=== PATIENT | female | born 1990 | race Caucasian/White ===

== ENCOUNTER 2022-11-12 16:22 | Outpatient (OUT) | payer OTHER, SELFPAY ==
[2022-11-12 16:51] LABS: Basophils Absolute Auto 0.1 10^3/uL (0.0-0.1); Eosinophils Absolute Auto 0.4 10^3/uL (0.0-0.7); Eosinophils Percent Auto 6.8 % (0.9-7.0); Hematocrit 36.1 % (36.0-48.0); Hemoglobin 12.4 g/dL (12.0-16.0); Immature Granulocytes Abs Auto 0.01 10^3/uL (0.00-0.03); Immature Granulocytes Pct Auto 0.2 % (0.0-0.5); Lymphocytes Absolute Auto 2.4 10^3/uL (1.2-3.8); Lymphocytes Percent Auto 39.6 % (20.5-60.0); Mean Corpuscular HGB Conc 34.3 g/dL (29.9-35.2); Mean Platelet Volume 8.1 fL (9.5-13.5); Monocytes Absolute Auto 0.4 10^3/uL (0.3-0.8); Neutrophils Absolute Auto 2.8 10^3/uL (1.4-6.5); Neutrophils Percent Auto 46.4 % (43.0-75.0); Platelet Count 315 10^3/uL (150-450); Red Blood Count 3.88 10^6/uL (4.20-5.40); Red Cell Distribution Width 11.8 % (11.0-15.0)
[2022-11-12 17:23] LABS: Estimated Average Glucose 97 mg/dL
[2022-11-12 17:27] LABS: Alanine Aminotransferase 17 U/L (14-59); Albumin Level 4.1 g/dL (3.4-5.0); Alkaline Phosphatase 109 U/L (46-116); Anion Gap 10.5; Aspartate Amino Transferase 16 U/L (15-37); BUN Creatinine Ratio 17.9; Bilirubin Direct 0.1 mg/dL (0.0-0.2); Bilirubin Total 0.3 mg/dL (0.2-1.0); Calcium 9.6 mg/dL (8.5-10.1); Carbon Dioxide 30.4 mmol/L (21.0-32.0); Chloride 100 mmol/L (98-107); Chol HDL Ratio 2.3; Cholesterol 185 mg/dL (<=200); Estimated GFR (African America >60 (>=60); Estimated GFR (Non-African Ame >60 (>=60); Free T3 2.92 pg/mL (2.18-3.98); Glucose 92 mg/dL (74-106); HDL Cholesterol 79 mg/dL (40-60); Magnesium 2.1 mg/dL (1.8-2.4); Potassium 3.9 mmol/L (3.5-5.1); Sodium 137 mmol/L (136-145); Thyroid Stimulating Hormone 1.291 uIU/mL (0.358-3.740); Total Protein 8.1 g/dL (6.4-8.2); Triglycerides 81 mg/dL (<=150); VLDL CHOLESTEROL 16.2 mg/dL
[2022-11-12 17:38] LABS: Percent Iron Saturation 24.5 %
[2022-11-12 18:16] LABS: Free T4 1.04 ng/dL (0.76-1.46)
== END 2022-11-12 16:23 | disposition home or self-care (01) ==
PROVIDERS: PCP Family Medicine; Visit Provider Family Medicine
DX: Z00.00 Encounter for general adult medical examination without abnormal findings (principal)
CPT/HCPCS: 36415; 80048; 80061; 80076; 82607; 83036; 83540; 83550; 83735; 84439; 84443; 84481; 85025

== ENCOUNTER 2023-09-29 14:27 | Emergency (ER) | payer OTHER, SELFPAY ==
[2023-09-29 14:36] VITALS: BP 120/85; PULSE 121; TEMP 36.6; O2SAT 98; BMI 27.4
--- NOTE | 2023-09-29 14:50 | ED.BACK1 ---
HPI HPI - Back Pain/Injury General Chief Complaint: Back Pain/Injury Stated Complaint: BACK AND LEG PAIN Time Seen by Provider: 09/29/23 14:28 History of Present Illness HPI Narrative: 32 year old female presents to the ED for lower back pain that radiates down the right leg. Onset was 09/25/23. Denies fever, chills, injury, urinary sx. Denies saddle anesthesia. Denies change in bowel and/or bladder control. She is having difficulty raising her right leg due to the pain. She called her pcp yesterday who prescribed prednisone and tramadol. She took 50 mg prednisone, 400 mg Ibuprofen, and tramadol at 1100 today. Denies chance of . She is driving today. Rates her pain 01/05. Reports this has been a recurrent issue. She has been in physical therapy and pain management in the past for similar sx. Reports hx DDD. Related Data Previous Rx's ?Medication ?Instructions ?Recorded hydrocodone 5 mg-acetaminophen 325 1 tab PO Q8H PRN pain 4 days #12 09/29/23 mg tablet tabs lidocaine 5 % topical patch 1 patch topical DAILY #15 ea 09/29/23 (Lidoderm) tizanidine 2 mg capsule (Zanaflex) 2 mg PO Q8H PRN muscle spasticity 09/29/23 #15 caps Allergies Allergy/AdvReac Type Severity Reaction Status Date / Time Penicillins Allergy Severe Unknown Verified 09/29/23 14:41 Opioid HPI Opioid Management Most Recent Opioid Data: Last Pain Scale 10 09/29/23 16:28 Last MAR Pain Assessment 09/29/23 16:28 Review of Systems ROS Constitutional Denies: fever or chills Cardiovascular Denies: chest pain Respiratory Denies: shortness of breath Gastrointestinal Denies: abdominal pain, nausea, vomiting or diarrhea Genitourinary Denies: painful urination, urinary frequency, urinary urgency, urinary incontinence or blood in urine Musculoskeletal Reports: back pain and extremity pain; Denies: neck pain Integumentary/Breast Denies: rash Neurological Denies: numbness in extremities or weakness in extremities [facility] Medical History (Updated 09/29/23 @ 17:22 by Edenilson Ron) Sciatic nerve pain ?M54.30 - Sciatica, unspecified side (ICD-10) Scoliosis ?M41.9 - Scoliosis, unspecified (ICD-10) Exam Constitutional Vital Signs, click to edit/add: Last Vital Signs Temp 97.9 F 09/29/23 14:36 Pulse 96 H 09/29/23 16:34 Resp 20 09/29/23 16:34 BP 131/74 09/29/23 16:34 Pulse Ox 98 09/29/23 16:34 O2 Del Method Room Air 09/29/23 14:36 Common normals: no apparent distress and oriented x3 General appearance: cooperative Eye Common normals: conjunctivae normal Neck & C-Spine Common normals: supple Chest Chest: symmetrical chest wall rise Respiratory Common normals: normal respiratory effort Effort & inspection: able to speak in complete sentences Cardio Common normals: regular rate Peripheral pulses: posterior tibial pulses present and dorsalis pedis pulses present Back & Pelvis Lumbar spine/lower back: normal to inspection, paraspinal muscle tenderness Lumbar paraspinal muscle tenderness: right and paraspinal muscle spasm Lumbar paraspinal muscle spasm: right Sacrum: tenderness; no ecchymosis, no erythema and no swelling Coccyx: tenderness Neuro Common normals: oriented x3 Sensorium/orientation: awake and alert Psych Mood and affect: tearful Course Vital Signs Vital signs: Vital Signs Temperature 97.9 F 09/29/23 14:36 Pulse Rate 121 H 09/29/23 14:36 Respiratory Rate 18 09/29/23 14:36 Blood Pressure 120/85 09/29/23 14:36 Pulse Oximetry 98 09/29/23 14:36 Oxygen Delivery Method Room Air 09/29/23 14:36 Temperature 97.9 F 09/29/23 14:36 Pulse Rate 96 H 09/29/23 16:34 Respiratory Rate 20 09/29/23 16:34 Blood Pressure 131/74 09/29/23 16:34 Pulse Oximetry 98 09/29/23 16:34 Oxygen Delivery Method Room Air 09/29/23 14:36 MDM - Back Pain/Injury MDM Narrative Medical decision making narrative: The patient was medicated for her discomfort here with improvement. X-ray showed mild degenerative disc disease L4-S1; on the prior CT abdomen pelvis from 02/23/2021 there is a central disc protrusion which mildly-moderately narrows the spinal canal and slightly narrows the lateral recess at this level. Findings were discussed. She was given a copy of her x-ray report. OARRS was reviewed. Prescriptions were provided for Lidoderm patches, Zanaflex, and norco. She was advised to not take the tramadol if she is taking the norco. Continue the prednisone as directed. Follow up with pcp for a recheck, further evaluation and treatment. Differential Diagnosis Differential diagnosis: Likely lumbar radiculopathy, sciatica, strain of lumbar region and thoracic back pain Medical Records Attestation: I reviewed the patient's medical records. Imaging Data XR lumbar spine: Attestation: I have reviewed the pertinent imaging results. Radiologist's impression: MRN: [facility]:[id number] date: 1990 Sex: F Assigned Patient Location: ER Current Patient Location: ER Accession/Order Number: [id number] Exam Date: 09/29/2023 15:41 Report Date: 09/29/2023 16:24 At the request of: EDENILSON RON Procedure: XR lumbar spine 2-3V IMAGES REVIEWED: XR lumbar spine 2-3V COMPARISON: 02/23/2021. CLINICAL INDICATION: Pain FINDINGS/IMPRESSION: 1. No radiographic evidence of acute osseous abnormality of the lumbar spine. 2. Mild dextrocurvature of the lower lumbar spine. 3. Question L5 pars defect. No significant spondylolisthesis seen on these x-rays, trace anterolisthesis L5-S1 seen on prior CT. 4. Mild degenerative disc disease L4-S1. On the prior CT abdomen pelvis from 02/23/2021 there is a central disc protrusion which mildly-moderately narrows the spinal canal and slightly narrows the lateral recess at this level. Electronically authenticated by: NUPUR CARO Date: 09/29/2023 16:24 Dictated By: Nupur Caro M.D. Signed By: 09/29/23 DD/ 1624 TD/TT: Manager Business Management: Discharge Plan Discharge Stand Alone Forms: Portal Instructions Chief Complaint: Back Pain/Injury Clinical Impression: Acute low back pain with sciatica Patient Disposition: Home, Self-Care Time of Disposition Decision: 17:22 Condition: Good Mode of Transportation: Private Vehicle Prescriptions / Home Meds: New tizanidine [Zanaflex] 2 mg capsule 2 mg PO Q8H PRN (Reason: muscle spasticity) Qty: 15 0RF lidocaine [Lidoderm] 5 % adhesive patch,medicated 1 patch topical DAILY Qty: 15 0RF Rx Instructions: leave on most painful area for up to 12 hrs hydrocodone-acetaminophen 5-325 mg tablet 1 tab PO Q8H PRN (Reason: pain) 4 Days Qty: 12 0RF Print Language: Gabonese Instructions: Sciatica (ED), Back Pain (ED) Additional Instructions: Return to the ER for new or worsening symptoms. Referrals: Neil Upton MD [Primary Care Provider] - 1 week Discharge Date/Time: 09/29/23 17:34
[2023-09-29] MEDS: LIDOCAINE 5% PATCH 1 PATCH TOPICAL (15:00)
[2023-09-29] MEDS: KETOROLAC TROMETHAMINE 30 MG/ML VIAL IM (15:00)
--- NOTE | 2023-09-29 15:51 | XR_ITS ---
The [address] [address] Patient Name: ELDA SAMPSON MRN: [id number] date: 1990 Sex: F Assigned Patient Location: ER Current Patient Location: ER Accession/Order Number: [id number] Exam Date: 09/29/2023 15:41 Report Date: 09/29/2023 16:24 At the request of: EDENILSON RON Procedure: XR lumbar spine 2-3V IMAGES REVIEWED: XR lumbar spine 2-3V COMPARISON: 02/23/2021. CLINICAL INDICATION: Pain FINDINGS/IMPRESSION: 1. No radiographic evidence of acute osseous abnormality of the lumbar spine. 2. Mild dextrocurvature of the lower lumbar spine. 3. Question L5 pars defect. No significant spondylolisthesis seen on these x-rays, trace anterolisthesis L5-S1 seen on prior CT. 4. Mild degenerative disc disease L4-S1. On the prior CT abdomen pelvis from 02/23/2021 there is a central disc protrusion which mildly-moderately narrows the spinal canal and slightly narrows the lateral recess at this level. Electronically authenticated by: NUPUR MENARD Date: 09/29/2023 16:24
[2023-09-29] MEDS: ORPHENADRINE 60 MG/ 2 ML VIAL IM (16:28)
[2023-09-29] MEDS: MORPHINE SULFATE 4 MG/ML VIAL IM (16:28)
[2023-09-29 16:34] VITALS: BP 131/74; PULSE 96; O2SAT 98
== END 2023-09-29 17:34 | disposition home or self-care (01) ==
PROVIDERS: Emergency Provider Emergency Medicine; PCP Family Medicine
DX: M54.41 Lumbago with sciatica, right side (principal)
CPT/HCPCS: 72100; 96372; 99284; J1885; J2270; J2360

== ENCOUNTER 2023-10-08 15:55 | Emergency (ER) | payer OTHER, SELFPAY ==
[2023-10-08] VITALS (17 sets, daily range): BP systolic 118; BP diastolic 85; PULSE 74–87; TEMP 36.8; O2SAT 95; BMI 29.3
--- NOTE | 2023-10-08 16:17 | ECG_ITS ---
[facility] Test Date: 2023-10-08 Pat Name: ELDA SAMPSON Department: Room: - Gender: Female Bed Teacher: : 1990 Requested By: EFREN RIOS Order Number: [id number] Reading MD: RUPAL CERVANTES Measurements Intervals [place] Rate: 78 P: 70 WA: 122 QRS: 83 QRSD: 104 T: 61 QT: 372 QTc: 405 Interpretive Statements 1100 Sinus rhythm 2440 Incomplete right bundle branch block 9130 borderline ECG No previous ECG available for comparison Electronically Signed On 10-09-2023 13:19:42 EDT by RUPAL CERVANTES
--- NOTE | 2023-10-08 16:17 | XR_ITS ---
[address] [address] Patient Name: ELDA SAMPSON MRN: [id number] date: 1990 Sex: F Assigned Patient Location: ER Current Patient Location: ER Accession/Order Number: [id number] Exam Date: 10/08/2023 16:25 Report Date: 10/08/2023 17:19 At the request of: CHACORTA LEE Procedure: XR chest 1V ONE-VIEW CHEST RADIOGRAPH, 10/08/2023 4:25 PM EDT COMPARISON: Chest, 10/27/2017 CLINICAL HISTORY: cp FINDINGS: No acute cardiopulmonary disease. No pulmonary edema, pneumothorax, or pleural effusion. Normal heart size. No acute osseous abnormality. XR/XR chest 1V IMPRESSION: No acute abnormality identified. Electronically authenticated by: Ginny TAVAREZ Date: 10/08/2023 17:19
--- NOTE | 2023-10-08 16:58 | ED_ITS ---
HPI - Chest Pain General Chief Complaint: Chest Pain Stated Complaint: chest pain, back pain, arm pain Time Seen by Provider: 10/08/23 16:16 Source: patient Mode of arrival: walk-in Limitations: no limitations History of Present Illness HPI narrative: The patient presented to us with a left-sided back and shoulder pain as well as chest pain that been going on at least for a week, she mentioned that she have a family history of coronary artery disease in her mother and she is concerned about her chest pain, she give this pain 7 out of 10, there was no nausea no vomiting no cough no difficulty breathing and the pain comes when taking a deep breath, also the pain comes whenever she is laying on the left side. no nausea no vomiting but the patient mentioned that she is feeling generally sick The patient also mentioned that she had bilateral ankle swelling over the last few days that resolved by itself Related Data Previous Rx's ?Medication ?Instructions ?Recorded hydrocodone 5 mg-acetaminophen 325 1 tab PO Q8H PRN pain 4 days #12 09/29/23 mg tablet tabs lidocaine 5 % topical patch 1 patch topical DAILY #15 ea 09/29/23 (Lidoderm) tizanidine 2 mg capsule (Zanaflex) 2 mg PO Q8H PRN muscle spasticity 09/29/23 #15 caps diclofenac sodium 75 mg 75 mg PO Q12H PRN pain #14 tabs 10/08/23 tablet,delayed release Allergies Allergy/AdvReac Type Severity Reaction Status Date / Time Penicillins Allergy Severe Unknown Verified 10/08/23 16:06 Review of Systems ROS Status of ROS 10 or more systems reviewed and unremark able except as noted in history and below [facility] Medical History (Updated 10/08/23 @ 18:19 by Kristie Arrington MD) Sciatic nerve pain ?M54.30 - Sciatica, unspecified side (ICD-10) Scoliosis ?M41.9 - Scoliosis, unspecified (ICD-10) Exam Narrative Exam Narrative: Nurses notes and vital signs reviewed and patient is not hypoxic. General: Well-appearing and in no apparent distress. Skin: Warm, dry, no pallor noted. No rash. Head: Normocephalic, atraumatic. Neck: Supple, non-tender. Eye: Pupils are equal, round and EOMI. No scleral icterus. Ears, Nose, Mouth, and Throat: TM are clear, no nasal mucosal hypertrophy. Oral mucosa is moist, no posterior oropharynx erythema, uvula is mid-line Cardiovascular: Regular Rate and Rhythm without murmur, gallop or rub. Respiratory: No accessory muscle use or respiratory distress. Lungs are clear to auscultation, no wheezing, rales or rhonchi Chest Wall: no tenderness Back: No midline thoracic or lumbar vertebral tenderness. No CVA tenderness Musculoskeletal: normal ROM, no calf or popliteal tenderness, no lower extremity edema/swelling GI: Abdomen is soft, non-distended. Normal bowel sounds. No masses appreciated. No tenderness to palpation. No rebound, guarding, or rigidity noted. Neurological: A&O x4. No cranial nerve dysfunction observed. No truncal ataxia. Moves all extremities. Sensation intact. Psychiatric: Cooperative and interactive. Normal mood and affect. Constitutional Vital Signs, click to edit/add: Last Vital Signs Temp 98.2 F 10/08/23 16:06 Pulse 82 10/08/23 16:06 Resp 18 10/08/23 16:06 BP 118/85 10/08/23 16:06 Pulse Ox 95 10/08/23 16:06 O2 Del Method Room Air 10/08/23 16:06 Course Vital Signs Vital signs: Vital Signs Temperature 98.2 F 10/08/23 16:06 Pulse Rate 82 10/08/23 16:06 Respiratory Rate 18 10/08/23 16:06 Blood Pressure 118/85 10/08/23 16:06 Pulse Oximetry 95 10/08/23 16:06 Oxygen Delivery Method Room Air 10/08/23 16:06 Temperature 98.2 F 10/08/23 16:06 Pulse Rate 82 10/08/23 16:06 Respiratory Rate 18 10/08/23 16:06 Blood Pressure 118/85 10/08/23 16:06 Pulse Oximetry 95 10/08/23 16:06 Oxygen Delivery Method Room Air 10/08/23 16:06 MDM - Chest Pain MDM Narrative Medical decision making narrative: The patient EKG in the ER showing sinus rhythm with a heart rate of [address] elevation or depression D-dimer CBC and as well as chemistry showed no acute pathology Chest x-ray showed no acute pathology as well The patient have a positive test but she have history of hysterectomy and she mentioned that she always have this test positive as she has been told this couple years ago Right now with the patient history of hysterectomy I will still make sure that the hCG level is low , she does not have any abdominal pain nausea vomiting or any other concerns Lab Data Labs: Lab Results 10/08/23 Range/Units 16:54 WBC 7.1 (4.0-11.0) 10^3/uL RBC 3.93 L (4.20-5.40) 10^6/uL Hgb 12.4 (12.0-16.0) g/dL Hct 37.3 (36.0-48.0) % MCV 94.9 (81.0-99.0) fL MCH 31.6 (26.7-34.0) pg MCHC 33.2 (29.9-35.2) g/dL RDW 11.8 (11.0-15.0) % Plt Count 315 (150-450) 10^3/uL MPV 8.1 L (9.5-13.5) fL Neut % (Auto) 49.0 (43.0-75.0) % Lymph % (Auto) 37.1 (20.5-60.0) % [place] % (Auto) 8.0 (1.7-12.0) % Eos % (Auto) 5.2 (0.9-7.0) % Baso % (Auto) 0.6 (0.2-2.0) % Neut # (Auto) 3.5 (1.4-6.5) 10^3/uL Lymph # (Auto) 2.6 (1.2-3.8) 10^3/uL [place] # (Auto) 0.6 (0.3-0.8) 10^3/uL Eos # (Auto) 0.4 (0.0-0.7) 10^3/uL Baso # (Auto) 0.0 (0.0-0.1) 10^3/uL Abs Immat Gran (auto) 0.01 (0.00-0.03) 10^3/uL Imm/Tot Granulo (auto) 0.1 (0.0-0.5) % D-Dimer 0.22 (<=0.59) mg/L FEU Sodium 141 (136-145) mmol/L Potassium 3.4 L (3.5-5.1) mmol/L Chloride 102 (98-107) mmol/L Carbon Dioxide 29.7 (21.0-32.0) mmol/L Anion Gap 12.7 BUN 17.0 (7.0-18.0) mg/dL Creatinine 0.89 (0.55-1.02) mg/dL Est GFR ( Amer) >60 (>=60) Est GFR (Non-Af Amer) >60 (>=60) BUN/Creatinine Ratio 19.1 Glucose 89 (74-106) mg/dL Calcium 9.0 (8.5-10.1) mg/dL Magnesium 1.7 L (1.8-2.4) mg/dL Total Bilirubin 0.2 (0.2-1.0) mg/dL AST 15 (15-37) U/L ALT 21 (14-59) U/L Alkaline Phosphatase 101 (46-116) U/L Troponin I High Sens 4.2 (4.0-51.3) pg/mL Total Protein 7.8 (6.4-8.2) g/dL Albumin 3.8 (3.4-5.0) g/dL Globulin 4.0 g/dL Albumin/Globulin Ratio 0.9 Serum HCG, Qual Positive A (NEGATIVE) Discharge Plan Discharge Stand Alone Forms: Portal Instructions Chief Complaint: Chest Pain Clinical Impression: Chest pain, Acute chest wall pain, Pleurisy Patient Disposition: Home, Self-Care Time of Disposition Decision: 18:19 Condition: Good Prescriptions / Home Meds: New diclofenac sodium 75 mg tablet,delayed release (DR/EC) 75 mg PO Q12H PRN (Reason: pain ) Qty: 14 0RF No Action tizanidine [Zanaflex] 2 mg capsule 2 mg PO Q8H PRN (Reason: muscle spasticity) Qty: 15 0RF lidocaine [Lidoderm] 5 % adhesive patch,medicated 1 patch topical DAILY Qty: 15 0RF Rx Instructions: leave on most painful area for up to 12 hrs hydrocodone-acetaminophen 5-325 mg tablet 1 tab PO Q8H PRN (Reason: pain) 4 Days Qty: 12 0RF Print Language: Mauritian Referrals: Neil Upton MD [Primary Care Provider] - 1 week
[2023-10-08 17:20] LABS: Basophils Percent Auto 0.6 % (0.2-2.0); Eosinophils Absolute Auto 0.4 10^3/uL (0.0-0.7); Eosinophils Percent Auto 5.2 % (0.9-7.0); Hematocrit 37.3 % (36.0-48.0); Hemoglobin 12.4 g/dL (12.0-16.0); Immature Granulocytes Abs Auto 0.01 10^3/uL (0.00-0.03); Immature Granulocytes Pct Auto 0.1 % (0.0-0.5); Lymphocytes Absolute Auto 2.6 10^3/uL (1.2-3.8); Lymphocytes Percent Auto 37.1 % (20.5-60.0); Mean Corpuscular HGB Conc 33.2 g/dL (29.9-35.2); Mean Corpuscular Hemoglobin 31.6 pg (26.7-34.0); Mean Corpuscular Volume 94.9 fL (81.0-99.0); Mean Platelet Volume 8.1 fL (9.5-13.5); Monocytes Absolute Auto 0.6 10^3/uL (0.3-0.8); Neutrophils Absolute Auto 3.5 10^3/uL (1.4-6.5); Platelet Count 315 10^3/uL (150-450); Red Blood Count 3.93 10^6/uL (4.20-5.40); Red Cell Distribution Width 11.8 % (11.0-15.0); White Blood Count 7.1 10^3/uL (4.0-11.0)
[2023-10-08 17:38] LABS: HCG Qualitative POSITIVE (NEGATIVE)
[2023-10-08 17:39] LABS: Internal Control Within Normal Limits
[2023-10-08 17:52] LABS: D Dimer 0.22 mg/L FEU (<=0.59)
[2023-10-08 17:55] LABS: Alanine Aminotransferase 21 U/L (14-59); Albumin Globulin Ratio 0.9; Albumin Level 3.8 g/dL (3.4-5.0); Alkaline Phosphatase 101 U/L (46-116); Anion Gap 12.7; Aspartate Amino Transferase 15 U/L (15-37); BUN Creatinine Ratio 19.1; Bilirubin Total 0.2 mg/dL (0.2-1.0); Carbon Dioxide 29.7 mmol/L (21.0-32.0); Chloride 102 mmol/L (98-107); Estimated GFR (African America >60 (>=60); Estimated GFR (Non-African Ame >60 (>=60); Glucose 89 mg/dL (74-106); Magnesium 1.7 mg/dL (1.8-2.4); Potassium 3.4 mmol/L (3.5-5.1); Sodium 141 mmol/L (136-145); Total Protein 7.8 g/dL (6.4-8.2); Troponin I High Sensitivity 4.2 pg/mL (4.0-51.3)
[2023-10-08 18:50] LABS: HCG Quantitative 7 mIU/mL
== END 2023-10-08 19:08 | disposition home or self-care (01) ==
PROVIDERS: Emergency Provider Emergency Medicine; PCP Family Medicine
DX: R07.9 Chest pain, unspecified (principal); R07.89 Other chest pain; R09.1 Pleurisy; Z90.710 Acquired absence of both cervix and uterus; Z82.49 Family history of ischemic heart disease and other diseases of the circulatory system
CPT/HCPCS: 36415; 71045; 80053; 80307; 83735; 84484; 84702; 84703; 85025; 85378; 93005; 99285

== ENCOUNTER 2023-11-03 07:30 | Outpatient (OUT) | payer OTHER, SELFPAY ==
--- NOTE | 2023-11-03 08:42 | PC.NURSE ---
Nursing Note Cardiac Stress Test Reviewed: Medication, allergies and patient history reviewed. Stress Test: [x ] Patient tolerated stress test well. [ ] Patient unable to tolerate walking on treadmill. Switched to Lexiscan stress test. [ ] No chest pain noted per patient [x ] Chest pain that resolved prior to leaving stress lab. [ ] No dyspnea noted. [ x] Dyspnea that resolved prior to leaving stress lab. [ ] Patient left stress lab asymptomatic and hemodynamically stable. [ ] Patient taken to the Emergency Room due to non-resolving symptoms following stress test. [ x] Patient achieved target heart rate. [ ] Patient unable to achieve target heart rate. [ ] Aminophylline administered as reversal agent to Lexiscan (Regadenoson). [ ] Nitro administered. Nursing Comments: Patient reached target heart rate quickly, per her report her heart will often increase with out any physical exertion. She stated she has been having difficulty breathing and left leg swelling and pain and it has continued since her ER visit 10/08/23. Patient was able to tolerate the treadmill to get to both target heart rate and the minimum of 4 minutes on the treadmill. Patients shortness of breath and exertion was increasing and she was placed in recovery. Patients shortness of breath and chest heaviness were not new symptoms per her report and occur both when she is doing physical activity and when she is at rest. Patient was monitored until she returned to her baseline in the stress lab. Patient states she is still a little short of breath but it is better and the chest heaviness is lessening. Called to inform Dr. Tato BEST of the extended time needed for recovery, and that the stress test was completed today.
--- NOTE | 2023-11-03 13:38 | PM.STRESS ---
Stress Test Stress Test Allergies Allergy/AdvReac Type Severity Reaction Status Date / Time Penicillins Allergy Severe Unknown Verified 10/08/23 16:06 Requesting physician: Neil Upton Procedure: Exercise stress test General Information: Reason for Stress Test: Chest pain Cardiac History and Risk Factors: Current smoker. Parents and grandparents have cardiovascular disease (e.g. [place], stroke). Resting 12 - Lead Electrocardiogram: Normal sinus rhythm with rate 81bpm, though repeat at rest before starting the treadmill portion the rate increased to 106. Trending towards right axis deviation. Unremarkable ST-segments/T-waves. Stress Test: Protocol: Jesús protocol was followed Exercise capacity: Fair exercise capacity. Total exercise time of 5 minutes 58seconds reached Jesús stage 2 at 2.5MPH, 12% grade, & 7 METs. Blood pressure: Initial: 106/70, Maximum: 132/80 Rate & rhythm: Rhythm appeared to be sinus tachycardia during the exercise portion, but 2 minutes into recovery, there was a mildly abrupt decrease in the rate.? 6 minutes into recovery, the rate increased into the 110's, but then progressively decreased into the 90's. The maximum heart rate was 173, which was 92% of the maximum predicted heart rate. ST-segments & T-waves: There were no T-wave changes or ST-segment changes when compared to the baseline EKG. Patient response/symptoms: Patient complained of dyspnea and chest heaviness which required nearly 15 minutes to resolve in the recovery phase. Interpretation: Normal exercise stress test without electrocardiographical evidence of ischemia. Question underlying sinus arrhythmia. Symptomatic of dyspnea and chest heaviness for a prolonged period of time, but no reproducible chest pain. Arriaga treadmill score is 6, which places patient in a low risk category. Clinical correlation required.
== END 2023-11-03 07:31 | disposition home or self-care (01) ==
PROVIDERS: PCP Family Medicine; Visit Provider Family Medicine
DX: R07.89 Other chest pain (principal)
CPT/HCPCS: 93017

== ENCOUNTER 2023-12-31 12:24 | Outpatient (OUT) | payer OTHER, SELFPAY ==
--- OUTSIDE RECORDS SUMMARY | 2023-12-31 12:26 | XMS_ITS | CCD ---
Author Organization [facility] Care Team Providers Care Economic Development Manager Name Role Phone Unavailable Unavailable MICHELLE MCCORD Admitting Unavailable Adelita Barrett Consulting Unavailable NADERER, DR NEIL Canas Primary Care Unavailable MICHELLE MCCORD Attending Unavailable MALCOLM ., MICHELLE Consulting Unavailable GABRIEL, DR NEIL Canas Admitting Unavailable NADERER, DR NEIL Canas Attending Unavailable NADERER, DR NEIL Canas Consulting Unavailable NADERER, DR NEIL Canas Primary Care Unavailable NADERER, DR NEIL Canas Primary Care Unavailable MISC, DR ESPARZA Admitting Unavailable MISC, DR ESPARZA Attending Unavailable MISC, DR ESPARZA Consulting Unavailable NADEREAlejandra, NEIL Referring Unavailable GABRIEL, NEIL Primary Care Unavailable Neil Rios MD Primary Care Provider [phone] GABRIEL, NEIL Attending Unavailable NADERER, NEIL Attending Unavailable NADERER, NEIL Attending Unavailable NADERER, NEIL Attending Unavailable NADERER, NEIL Attending Unavailable Allergies Allergy Classification Reported Allergen(s) Allergy Type Date of Onset Reaction(s) Facility (3 sources) Penicillins; Translations: [Penicillins] Allergy to drug (finding) 8 Itching [facility] (1 source) Acetaminophen / HYDROcodone Drug Allergy 5 [facility] (1 source) Penicillins Drug allergy (disorder) 5 [facility] Rep[facility] (2 sources) Acetaminophen / HYDROcodone; Translations: [HYDROCODONE-ACET AMINOPHEN] Drug Allergy 8 Rash [facility] (1 source) Azithromycin; Translations: [AZITHROMYCIN] Drug Allergy 9 [facility] (1 source) Clindamycin; Translations: [CLINDAMYCIN] Drug Allergy 9 [facility] (1 source) ADHESIVE TAPE-SILICONES; Translations: [ADHESIVE TAPE-SILICONES] Propensity to adverse reactions to drug (disorder) 2 [facility] (1 source) Erythromycin Drug Allergy 4 Unknown [facility] (1 source) Penicillin G Drug Allergy 4 Swelling, Rash [facility] Medications Current Medications Medication Drug Class(es) Dates Sig (Normalized) Sig (Original) ALPRAZolam 0.25 mg oral tablet (1 source) Benzodiazepine Start: 08-20-2022 take 1 tablet by mouth three times daily as needed for anxiety ALPRAZolam (Xanax) 0.25 MG tablet Take 1 tablet by mouth 3 (three) times a day as needed for anxiety 0 08/20/2022 Active amphetamine aspartate 5 mg / amphetamine sulfate 5 mg / dextroamphetamine saccharate 5 mg / dextroamphetamine sulfate 5 mg oral tablet (6 sources) Central Nervous System Stimulant Start: 05-12-2023 take 1 tablet by mouth once daily in the morning amphetamine-dextr oamphetamine (Adderall) 20 MG tablet Indications: ADD (attention deficit disorder) without hyperactivity take 1 tablet by mouth every morning 30 tablet 0 05/12/2023 Active Start: 04-19-2023 take 1 capsule by [facility] every twenty-four hours in the morning amphetamine-dextroamphetamine XR (Addera ll XR) 30 MG 24 hr capsule Indications: ADD (attention deficit disorder) without hyperactivity Take 1 capsule (30 mg) by mouth in the morning. 30 capsule 0 04/19/2023 Active Amphetamine-Dext roamphet ER 20 MG Oral Capsule Extended Release 24 Hour Quantity: 0 Refills: 0 Ordered: 05-Nov-2021 DO Active Amphetamine-Dext roamphet ER 30 MG Oral Capsule Extended Release 24 Hour Quantity: 0 Refills: 0 Ordered: 05-Nov-2021 DO Active SUMAtriptan 100 mg oral tablet (1 source) Serotonin-1b and Serotonin-1d Receptor Agonist Start: 05-12-2022 take 1 tablet by mouth once SUMAtriptan (Imitrex) 100 MG tablet Take 1 tablet by mouth 1 (one) time if needed for migraine (1PO at onset of TONEY; may repeat in 2 hours x one.) 0 05/12/2022 Active Completed/Discontinued Medications Medication Drug Class(es) Dates Sig (Normalized) Sig (Original) omeprazole 20 mg delayed release oral capsule (2 sources) Proton Pump Inhibitor Start: 11-05-2021 take 1 capsule by mouth once daily at breakfast Omeprazole 20 MG Oral Capsule Delayed Release TAKE 1 CAPSULE BY MOUTH DAILY (30-60 minutes prior to breakfast). Quantity: 90 Refills: 3 Ordered: 05-Nov-2021 Gary ARCHITECTURE CONSULTANT-EXCAVATING CONTRACTOR, Asim Start : 05-Nov-2021 Active psyllium 520 mg oral capsule (2 sources) Start: 11-05-2021 take 1 capsule by mouth once daily Psyllium Fiber 0.52 GM Oral Capsule TAKE 2-6 CAPSULES BY MOUTH DAILY; INCREASE DOSE TOLERATED Quantity: 180 Refills: 11 Ordered: 05-Nov-2021 Gary ARCHITECTURE CONSULTANT-EXCAVATING CONTRACTOR, Asim Start : 05-Nov-2021 Active Problems Active Problems Problem Classification Problem Date Documented Da te Episodic/Chronic Allergic reactions (1 source) Propensity to adverse reactions to food; Translations: [Other adverse food reactions, not elsewhere classified, initial encounter] Onset: 04-01-2023 04-01-2023 Episodic Anxiety disorders (1 source) Generalized anxiety disorder; Translations: [Generalized anxiety disorder] Onset: 04-01-2023 04-01-2023 Chronic Asthma (1 source) Mild intermittent asthma; Translations: [Mild intermittent asthma, uncomplicated] Onset: 04-01-2023 04-01-2023 Chronic Cardiac dysrhythmias (2 sources) Palpitations; Translations: [Palpitations] Onset: 04-01-2023 04-01-2023 Episodic Disorders usually diagnosed in infancy, childhood, or adolescence (2 sources) Attention deficit hyperactivity disorder, predominantly inattentive type; Translations: [Other specified behavioral and emotional disorders with onset usually occurring in childhood and adolescence] Onset: 03-05-2023 05-11-2023 Chronic Esophageal disorders (4 sources) Higgins's esophagus; Translations: [Higgins's esophagus] Onset: 04-01-2023 04-01-2023 Chronic Headache; including migraine (1 source) Migraine without aura, not refractory ; Translations: [Chronic migraine without aura, not intractable, without status migrainosus] Onset: 04-01-2023 04-01-2023 Chronic Mood disorders (1 source) Mild mixed bipolar I disorder; Translations: [Bipolar disorder, current episode mixed, mild] Onset: 04-01-2023 04-01-2023 Chronic Nausea and vomiting (2 sources) Nausea; Translations: [Nausea alone] Episodic Other aftercare (1 source) Other correction (current) drug therapy; Translations: [OTH SHELTER CURRENT DRUG THERAPY] Onset: 05-28-2022 Episodic Other connective tissue disease (1 source) Other muscle spasm; Translations: [OTHER MUSCLE SPASM] Onset: 05-28-2022 Episodic Other gastrointestinal disorders (2 sources) Irritable bowel syndrome; Translations: [Irritable bowel syndrome] Chronic Other gastrointestinal disorders (2 sources) Abdominal bloating; Translations: [Flatulence, eructation, and gas pain] Episodic Residual codes; unclassified (1 source) Early satiety; Translations: [Early satiety] Episodic Spondylosis; intervertebral disc disorders; other back problems (1 source) Degeneration of lumbar intervertebral disc; Translations: [Other intervertebral disc degeneration, lumbar region] Onset: 04-01-2023 04-01-2023 Chronic Substance-related disorders (1 source) Nicotine dependence, cigarettes, uncomplicated; Translations: [NICOTINE DEPEND CIGARETTES UNCOMP] Onset: 05-28-2022 Chronic Unclassified (3 sources) LOW BACK PAIN, UNSPECIFIED; Translations: [LOW BACK PAIN, UNSPECIFIED] Onset: 05-28-2022 Past or Other Problems Problem Classification Problem Date Documented Da te Episodic/Chronic Abdominal pain (5 sources) Right upper quadrant pain; Translations: [Abdominal pain, right upper quadrant] Onset: 10-10-2021 Episodic Mood disorders (1 source) Mood disorders Onset: 04-01-2023 04-01-2023 Other gastrointestinal disorders (4 sources) Abdominal distension (gaseous); Translations: [ABDOMINAL DISTENSION GASEOUS] Onset: 2021 Episodic Unclassified (1 source) LOW BACK PAIN, UNSPECIFIED; Translations: [LOW BACK PAIN, UNSPECIFIED] Onset: 05-26-2022 Results Test Name Value Interpretation Reference Range Facility XR LSPINE 2_3 VIEWSon 2022 XR LSPINE 2_3 VIEWS EXAMINATION: XR LSPINE 2_3 VIEWS HISTORY: Pain COMPARISON: No relevant comparison available. FINDINGS: BONES: Mild levocurvature centered at L2. No significant spondylosis, scoliosis, fracture, or visible bony lesion. DISC SPACES: Normal. No significant disc height narrowing, subluxation, or endplate abnormality. PARASPINOUS: Negative. No paraspinous abnormality is seen. OTHER: Negative. IMPRESSION: Mild levocurvature Electronically authenticated by: ADELITA BARRETT Date: 2022-05-26 11:17 Normal [facility] NM Gastric Empty Solid Onlyo n 12-02-2021 NM Stomach Views for gastric emptying solid phase W Tc-99m SC PO Normal [facility] 6 [facility] Work Phone: TRANSGLUTAMINASE IGAon 11-08 t-Transglutaminase (tTG) IgA <2 Normal 0-3 [facility] Comment on above: Result Comment: Nega tive 0 - 3 Weak Positive 4 - 10 Positive >10 . Tissue Transglutaminase (tTG) has been identified as the endomysial antigen. Studies have demonstr- ated that endomysial IgA antibodies have over 99% specificity for gluten sensitive enteropathy. Performed By: #### T DANIEL #### [facility] [address] [place] [address] Dr. 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 (530.85) (K22.70) Irritable bowel syndrome with both constipation and diarrhea (564.1) (K58.2) Bloating (787.3) (R14.0) Nausea in adult (787.02) (R11.0) Early satiety (780.94) (R68.81) GERD (gastroesophageal reflux disease) (530.81) (K21.9) Abdominal pain, RUQ (right upper quadrant) (789.01) (R10.11) Orders Higgins's esophagus without dysplasia Start: Omeprazole 20 MG Oral Capsule Delayed Release; TAKE 1 CAPSULE BY MOUTH DAILY (30-60 minutes prior to breakfast) Rx By: Gary, Asim; Dispense: 0 Days ; #:90 Capsule; Refill: 3;For: Higgins's esophagus without dysplasia; SUZAN = N; Verified Transmission to [facility]; Last Updated By: System, [employer]; 11/05/2021 2:33:05 PM Bloating TISSUE TRANSGLUTAMINIASE AB, IGA WITH ASSESSMENT OF TOTAL IgA; Status:Active; Requested for:05Nov2021; Perform:Lab Services - Lab To Draw (Blood Test); Due:03Feb2022;Ordered ; For:Bloating; Ordered By:Asim Vega; Irritable bowel syndrome with both constipation and diarrhea Start: Psyllium Fiber 0.52 GM Oral Capsule; TAKE 2-6 CAPSULES BY MOUTH DAILY; INCREASE DOSE TOLERATED Rx By: Asim Vega; Dispense: 0 Days ; #:180 Capsule; Refill: 11;For: Irritable bowel syndrome with both constipation and diarrhea; SUZAN = N; Verified Transmission to [facility] [employer]; Last Updated By: [employer]; 11/05/2021 2:33:05 PM Nausea in adult NM Gastric Empty Solid Only; Status:Hold For - Scheduling; Requested for:05Nov2021; Perform:[facility]; Due:03Feb2022;Ordered ; For:Nausea in adult; Ordered By:Asim Vega; Radiologist to Determine Optimal Study : Y What are the patient's signs and symptoms? : nausea; early satiety Patient Discussion/Summary Thanks for coming to the GI clinic. Please start omeprazole 20 mg once daily (30-60 minutes prior to breakfast). I recommend you stay on this indefinitely given your Higgins's esophagus. I recommend a repeat upper endoscopy in 3-5 years ([id number]). Start daily psyllium fiber to help regulate your bowels. Please get a gastric emptying study. I would like you to get blood work to check for celiac disease. Try to stop using tobacco. Follow up 3 weeks after completion of the above. Provider Impressions 1. Chronic RUQ abdominal pain, nausea, early satiety, bloating: pain does not sound biliary in nature given the timing. Need to consider gastroparesis. I question if abdominal pain could be functional in nature. - will get gastric emptying study - consider low dose TCA pending the above 2. Chronic bilateral lower abdominal cramping, constipation alternating with diarrhea: overall suspect mixed IBS. Also consider celiac disease albeit less likely. - check tTG IgA - start daily psyllium fiber 3. Nondysplastic Higgins's esophagus: - start omeprazole 20 mg once daily - recommend indefinite PPI use - advise tobacco cessation - recommend surveillance EGD in 3-5 years ([id number]) 4. GERD: - omeprazole as above - advise tobacco cessation 5. Follow up: - return to clinic 3 weeks after completion of the above Chief Complaint abdominal pain History of Present Illness This is a 30 year old WF with history of tobacco use, ADHD, migraines, anxiety/depression, and nondysplastic Higgins's esophagus who is presenting to the GI clinic for an initial visit. History per pt, records pulled up on pt's cell phone, and review of records from [facility] Reports since childhood she's been having intermittent sharp RUQ abdominal pain lasting from 3 days to 2 weeks in duration. Denies any aggravating or alleviating factors. Reports associated nausea. ROS positive for bloating and early satiety Diet includes gluten. Reports occasional heartburn which has improved from prior (does not feel it occurs when she has the abdominal pain). Reports for the past 5-6 months she's been having constipation alternating with diarrhea (50% of each) associated with bilateral lower abdominal cramping (improves with defecation). Stools range from small pellets to watery in nature. She can go 2 days without moving her bowels. She can have up to 3 episodes of diarrhea per day. Denies dysphagia, vomiting, hematemesis, hematochezia, or melena. CBC, chemistries, amylase, lipase unrevealing; no anemia, normal creatinine (10/09/21 [facility]) RUQ ultrasound unremarkable (2019 [facility]) HIDA scan negative (2019 [facility]) RUQ ultrasound unremarkable (03/12/21 [facility]) CT A/P w/o contrast unremarkable (02/23/21 [facility]) EGD 04/07/21 (Dr. Tahir Georges; [place]): - LA grade A reflux esophagitis. Biopsied. - Normal stomach. Biopsied - Normal duodenum Colonoscopy up to cecum: 04/07/21 (Dr. Tahir Georges; [place]): - Normal (no specimens collected) Pathology: Gastric antrum: chronic reactive gastropathy/chemical gastritis (H (more content not included)... Normal [employer] Tobacco Screening.on 022 Fall risk assessment a) No falls within the last year [facility] Work Phone: Tobacco use status [facility]PH[facility] a) Yes [facility] Work Phone: Tobacco Screening. Yes [facility] Work Phone: AMYLASEon 10-10-2021 Amylase [Catalytic activity/Vol] 43 U/L Normal 25-115 [facility] Comment on above: Performed By: #### A MY, LIVER, LIPA, BMP #### [facility] [address] [place] [address] Dr. Iona Dye CBC AUTO DIFFon 10-10-2021 BASO # 0.0 103/ul Normal 0.0-0.1 [facility] Comment on above: Performed By: #### C BC #### [facility] [address] [place] [address] Dr. Iona Dye Basophils/100 WBC (Bld) 0.5 % Normal 0.2-2.0 [facility] Comment on above: Performed By: #### C BC #### [facility] [address] [place] [address] Dr. Iona Dye EO # 0.5 103/ul Normal 0.0-0.7 [facility] Comment on above: Performed By: #### C BC #### [facility] [address] [place] [address] Dr. Iona Dye Eosinophils/100 WBC (Bld) 7.1 % Critically high 0.9-7.0 [facility] Comment on above: Performed By: #### C BC #### [facility] [address] [place] [address] Dr. Iona Dye Erythrocyte distribution width (RBC) [Ratio] 11.9 % Normal 11.0-15.0 [facility] Comment on above: Performed By: #### C BC #### [facility] [address] [place] [address] Dr. Iona Dye Hematocrit (Bld) [Volume fraction] 37.4 % Normal 36.0-48.0 [facility] Comment on above: Performed By: #### C BC #### [facility] [address] [place] [address] Dr. Iona Dye Hemoglobin (Bld) [Mass/Vol] 12.5 g/dL Normal 12.0-16.0 [facility] Comment on above: Performed By: #### C BC #### [facility] [address] [place] [address] Dr. Iona Dye IG # 0.01 10e3/ul Normal 0.00-0.03 [facility] Comment on above: Performed By: #### C BC #### [facility] [address] [place] [address] Dr. Iona Dye IG % 0.2 % Normal 0.0-0.5 [facility] Comment on above: Performed By: #### C BC #### [facility] [address] [place] [address] Dr. Iona Dye LYMPH # 1.8 103/ul Normal 1.2-3.8 [facility] Comment on above: Performed By: #### C BC #### [facility] [address] [place] [address] Dr. Iona Dye Lymphocytes/100 WBC (Bld) 28.0 % Normal 20.5-60.0 [facility] Comment on above: Performed By: #### C BC #### [facility] [address] [place] [address] Dr. Iona Dye MANUAL DIFF REQ NO Normal [facility] Comment on above: Performed By: #### C BC #### [facility] [address] [place] [address] Dr. Iona Dye MCH (RBC) [Entitic mass] 30.5 pg Normal 26.7-34.0 [facility] Comment on above: Performed By: #### C BC #### [facility] [address] [place] [address] Dr. Iona Dye MCHC (RBC) [Mass/Vol] 33.4 g/dL Normal 29.9-35.2 [facility] Comment on above: Performed By: #### C BC #### [facility] [address] [place] [address] Dr. Iona Dye MCV (RBC) [Entitic vol] 91.2 fL Normal 81.0-99.0 [facility] Comment on above: Performed By: #### C BC #### [facility] [address] [place] [address] Dr. Iona Dye MONO # 0.5 103/ul Normal 0.3-0.8 [facility] Comment on above: Performed By: #### C BC #### [facility] [address] [place] [address] Dr. Iona Dye Monocytes/100 WBC (Bld) 7.2 % Normal 1.7-12.0 [facility] Comment on above: Performed By: #### C BC #### [facility] [address] [place] [address] Dr. Iona Dye NEUT # 3.7 103/ul Normal 1.4-6.5 [facility] Comment on above: Performed By: #### C BC #### [facility] [address] [place] [address] Dr. Iona Dye Neutrophils/100 WBC (Bld) 57.0 % Normal 43.0-75.0 [facility] Comment on above: Performed By: #### C BC #### [facility] [address] [place] [address] Dr. Iona Dye Platelet mean volume (Bld) [Entitic vol] 8.4 fL Critically low 9.5-13.5 [facility] Comment on above: Performed By: #### C BC #### [facility] [address] [place] [address] Dr. Iona Dye PLT 294 103/ul Normal 150-450 [facility] Comment on above: Performed By: #### C BC #### [facility] [address] [place], [place] [id number] Dr. Iona Dye RBC 4.10 106/ul Critically low 4.20-5.40 [facility] Comment on above: Performed By: #### C BC #### [facility] [address] [place] [address] Dr. Iona Dye WBC 6.5 103/ul Normal 4.0-11.0 [facility] Comment on above: Performed By: #### C BC #### [facility] [address] [place] [address] Dr. Iona Dye LIPASEon 10-10-2021 Lipase [Catalytic activity/Vol] 64.0 U/L Critically low 73.0-393.0 [facility] Comment on above: Performed By: #### A MY, LIVER, LIPA, BMP #### [facility] [address] [address] [address] Iona Dye LIVER PROFILEon 10-10-2021 Albumin [Mass/Vol] 3.8 g/dL Normal 3.4-5.0 [place] Comment on above: Performed By: #### A MY, LIVER, LIPA, BMP #### [facility] [address] [place] [address] Dr. Iona Dye Albumin/Globulin [Mass ratio] 0.8 {ratio} Normal [facility] Comment on above: Performed By: #### A MY, LIVER, LIPA, BMP #### [facility] [address] [address] [address] Iona Dye ALP [Catalytic activity/Vol] 110 U/L Normal 46-116 [facility] Comment on above: Performed By: #### A MY, LIVER, LIPA, BMP #### [facility] [address] [address] [address] Iona Dye ALT [Catalytic activity/Vol] 18 U/L Normal 14-59 [facility] Comment on above: Performed By: #### A MY, LIVER, LIPA, BMP #### [facility] [address] [address] [address] Iona Dye AST [Catalytic activity/Vol] 14 U/L Critically low 15-37 [facility] Comment on above: Performed By: #### A MY, LIVER, LIPA, BMP #### [facility] [address] [address] [address] Iona Dye BILI, CONJUGATED 0.1 mg/dL Normal 0.0-0.2 [facility] Comment on above: Performed By: #### A MY, LIVER, LIPA, BMP #### [facility] [address] [place] [address] Dr. Iona Dye Bilirubin [Mass/Vol] 0.3 mg/dL Normal 0.2-1.0 [facility] Comment on above: Performed By: #### A MY, LIVER, LIPA, BMP #### [facility] [address] [place] [address] Dr. Iona Dye Globulin (S) [Mass/Vol] 4.5 g/dL Normal [facility] Comment on above: Performed By: #### A MY, LIVER, LIPA, BMP #### [facility] [address] [place] [address] Dr. Iona Dye Protein [Mass/Vol] 8.3 g/dL Critically high 6.4-8.2 [facility] Comment on above: Performed By: #### A MY, LIVER, LIPA, BMP #### [facility] [address] [place] [address] Dr. Iona Dye PROF CHEM 8 (BAS METB)on Anion gap [Moles/Vol] 12.0 mmol/L Normal [facility] Comment on above: Performed By: #### A MY, LIVER, LIPA, BMP #### [facility] [address] [place] [address] Dr. Iona Dye Calcium [Mass/Vol] 9.7 mg/dL Normal 8.5-10.1 [place] Comment on above: Performed By: #### A MY, LIVER, LIPA, BMP #### [facility] [address] [place] [address] Dr. Iona Dye Chloride [Moles/Vol] 102 mmol/L Normal 98-107 [facility] Comment on above: Performed By: #### A MY, LIVER, LIPA, BMP #### [facility] [address] [place] [address] Dr. Iona Dye CO2 [Moles/Vol] 29.3 mmol/L Normal 21.0-32.0 [facility] Comment on above: Performed By: #### A MY, LIVER, LIPA, BMP #### [facility] [address] [address] [address] Iona Dye Creatinine [Mass/Vol] 0.88 mg/dL Normal 0.55-1.02 [facility] Comment on above: Performed By: #### A MY, LIVER, LIPA, BMP #### [facility] [address] [address] [address] Iona Dye EGFR-AF TAIWANESE >60 Normal >=60 [facility] Comment on above: Performed By: #### A MY, LIVER, LIPA, BMP #### [facility] [address] [place] [address] Dr. Iona Dye EGFR-NON AF TAIWANESE >60 Normal >=60 [facility] Comment on above: Performed By: #### A MY, LIVER, LIPA, BMP #### [facility] [facility] [address] [place] [address] Dr. Iona Dye Glucose [Mass/Vol] 101 mg/dL Normal 74-106 [place] Comment on above: Performed By: #### A MY, LIVER, LIPA, BMP #### [facility] [address] [place] [address] Dr. Iona Dye Potassium [Moles/Vol] 3.3 mmol/L Critically low 3.5-5.1 [facility] Comment on above: Performed By: #### A MY, LIVER, LIPA, BMP #### [facility] [address] [address] [address] Iona Dye Sodium [Moles/Vol] 140 mmol/L Normal 136-[address] [facility] Comment on above: Performed By: #### A MY, LIVER, LIPA, BMP #### [facility] [address] [place] [address] Dr. Iona Dye Urea nitrogen [Mass/Vol] 12.0 mg/dL Normal 7.0-18.0 [facility] Comment on above: Performed By: #### A MY, LIVER, LIPA, BMP #### [facility] [address] [place] [address] Dr. Iona Dye Urea nitrogen/Creatinine [Mass ratio] 13.6 mg/mg Normal [facility] Comment on above: Performed By: #### A MY, LIVER, LIPA, BMP #### [facility] [id number] Iona Dye History and Physicalon 11-24 History and Physical [id number] [facility] - [facility]geon/P hysicianon 11-24-2018 Operative Report - Surgeon/Physician [id number] [facility]erson 11-24-2018 Provider Orders [id number] .00[facility] Coding Summaryon 11-21-2018 Coding Summary CODING DATE: 11/21/2018 [facility] STATUS: Home PAYOR: Medicaid HMO Grouper: 513 APR-DRG UTERINE & ADNEXA PROCEDURES FOR NON-MALIGNANCY EXCEPT LEIOMYOMA Severity of Illness Minor Risk of Mortality Minor ADMIT DX: R10.2 Pelvic and perineal pain REASON FOR VISIT DX: FINAL DX: PRINCIPAL: N72 Y Inflammatory disease of cervix uteri SECONDARY: N80.0 Y Endometriosis of uterus N83.201 Y Unspecified ovarian cyst, right side N83.202 Y Unspecified ovarian cyst, left side F17.210 Y Nicotine dependence, cigarettes, uncomplicated PROCEDURES DOCTOR NAME DATE [id number] Resection of Uterus, Open 11/15/2018 Approach [id number] Resection of Bilateral Ovaries, 11/15/2018 Open Approach [id number] Resection of Bilateral 11/15/2018 Fallopian Tubes, Open Approach [id number] Release Uterus, Open Approach 11/15/2018 NOTE: The code number assigned matches the documented diagnosis and / or procedure in the patient's chart. However, the narrative phrase printed from the coding software may appear abbreviated, or result in slightly different terminology. Coded By: Rosalba Nguyen Date Saved: 11/21/2018 10:36 am [facility] Consent Formson 11-18-2018 Consent Forms [id number] [place] [address] Consent Forms [id number] Lab - AP Resultson 9 Lab - AP Results [id number] [place] [address] Telemetry Stripson 9 Telemetry Strips [id number] [place] [address] Education Noteon 11-17-2018 Education Note Education Materials Abdomnial Hysterectomy, Care After Refer to this sheet in the next few weeks. These instructions provide you with information on caring for yourself after your procedure. Your health care provider may also give you more specific instructions. Your treatment has been planned according to current medical practices, but problems sometimes occur. Call your health care provider if you have any problems or questions after your procedure. WHAT TO EXPECT AFTER THE PROCEDURE After your procedure, it is typical to have the following: ? Abdominal pain. You will be given pain medicine to control it. ? Sore throat from the breathing tube that was inserted during surgery. HOME CARE INSTRUCTIONS ? Only take kdiz-yqm-ulgkkwx or prescription medicines for pain, discomfort, or fever as directed by your health care provider. ? Do not take aspirin. It can cause bleeding. ? Do not drive when taking pain medicine. ? Follow your health care provider's advice regarding diet, exercise, no lifting over 20 lbs for (2) weeks, no driving for (1) week or while still taking narcotic pain medication, and general activities including walking often ? Resume your usual diet as directed and allowed. ? Get plenty of rest and sleep. ? Do not douche, use tampons, or have sexual intercourse for at least 6 weeks, or until your health care provider gives you permission. ? Monitor your temperature and notify your health care provider of a fever or temperature greater than 100.6 degrees ? Take showers instead of baths for 2?3 weeks. Shower daily. ? Do not drink alcohol until your health care provider gives you permission. ? If you develop constipation, you may take a milk of magnesia or Dulcolax Suppositoryor tablets. Bran foods may help with constipation problems. Drinking enough fluids to keep your urine clear or pale yellow may help as well. ? Try to have someone home with you for 1?2 weeks to help around the house. ? Keep your after surgery 2 week folllow up appointment. Call Dr Ryan's office for an appointment time if you do no already have one. SEEK MEDICAL CARE IF: ? You have swelling, redness, or increasing pain around your incision sites. ? You have pus coming from your incision. ? You notice a bad smell coming from your incision. ? Your incision breaks open. ? You feel dizzy or lightheaded. ? You have pain or bleeding when you urinate. ? You have persistent diarrhea. ? You have persistent nausea and vomiting. ? You have abnormal vaginal discharge. ? You have a rash. ? You have any type of abnormal reaction or develop an allergy to your medicine. ? You have poor pain control with your prescribed medicine. SEEK IMMEDIATE MEDICAL CARE IF: ? You have a fever. ? You have severe abdominal pain. ? You have chest pain. ? You have shortness of breath. ? You faint. ? You have pain, swelling, or redness in your leg. ? You have heavy vaginal bleeding with blood clots. MAKE SURE YOU: ? Understand these instructions. ? Will watch your condition. ? Will get help right away if you are not doing well or get worse. This information is not intended to replace advice given to you by your health care provider. Make sure you discuss any questions you have with your health care provider. Document Released: 03/03/2012 Document Revised: 03/20/2014 Document Reviewed: 09/28/2013 [employer] Interactive Patient Education ?2016 [employer]. Normal [facility] Inpatient Patient Summaryon 11-17-2018 [place] [address] Patient Discharge Instructions Name: ELDA SAMPSON : 1990 Patient Address: [address] [place] [address] Primary Care Provider: Name: NEIL RIOS After you are discharged if you find you have any questions, please, call [phone] ext [phone] to speak to a nurse. Discharge Diagnosis: 1:Pelvic pain; 2:DUB (dysfunctional uterine bleeding) Prescription Information: If you have been given a prescription for narcotics, seek immediate medical attention if you have any difficulty breathing or any sudden status changes such as confusion and sleepiness. If you or anyone you know is experiencing suicidal thoughts, mental health, alcohol and/or drug addiction problems; contact the [facility] 19/10 Crisis Hotline -Text 4HXBO to 779856. If you received any narcotics, sedation, or any other medication that causes drowsiness for the next 24 hours, unless otherwise directed: ? Do not drive a car. ? Do not operate machinery such as power tools, lawn mowers, drills, sewing machines, or stoves ? Avoid alcoholic beverages and drugs for allergies, nerves, or sleep ? Do not make important personal or business decisions or sign any legal documents [facility] would like to thank you for allowing us to assist you with your healthcare needs. The following includes patient education materials and information regarding your injury/illness. ELDA SAMPSON has been given the following list of follow-up instructions, prescriptions, and patient education materials: Follow-up Instructions With: Address: When: Curtis Connor [address] [place], [place] [id number] [facility] (1) 11/29/2018 2:00 PM With: Address: When: NEIL RIOS [address] [place], [place] [address], [place] [id number] Business (1) With: Address: When: Curtis Ryan [address] [place], [place] [address] [facility] (1) In 2 weeks 11/30/2018 Medications During the course of your visit, your medication list was updated with the most current information. The details of those changes are reflected below: New Medications [facility], [address] [place] [phone], [phone] ibuprofen (ibuprofen 600 mg oral tablet) 1 tab(s) Oral every 6 hours as needed Pain - Mild. Refills: 0. Printed Prescriptions acetaminophen-oxycodo ne (Percocet 5/325 oral tablet) 1 tab(s) Oral every 6 hours as needed for pain. may take 1 or 2 tablets not to exceed 12 tablets/day. Refills: 0. estradiol (estradiol 1 mg oral tablet) 1 tab(s) Oral every day. MAGRU. Refills: 0. Medications to Continue That Have Not Changed Other Medications albuterol (albuterol 90 mcg/inh inhalation aerosol) 2 puff(s) Inhalation 4 times a day as needed for wheezing. buPROPion (buPROPion 150 mg/24 hours (XL) oral tablet, extended release) 1 tab(s) Oral Every 24 hours scheduled. No Longer Take the Following Medications ibuprofen (ibuprofen 600 mg oral tablet) 1 tab(s) Oral Every 6 hours as needed pain. medroxyPROGESTERone (medroxyPROGESTERone 150 mg/mL intramuscular suspension) It is important to always keep an active list of medications available so that you can share with other providers and manage your medications appropriately. As an additional courtesy, we are also providing you with your final active medications list that you can keep with you. acetaminophen-oxycodo ne (Percocet 5/325 oral tablet) 1 tab(s) Oral every 6 hours as needed for pain. may take 1 or 2 tablets not to exceed 12 tablets/day. Refills: 0. albuterol (albuterol 90 mcg/inh inhalation aerosol) 2 puff(s) Inhalation 4 times a day as needed for wheezing. buPROPion (buPROPion 150 mg/24 hours (XL) oral tablet, extended release) 1 tab(s) Oral Every 24 hours scheduled. estradiol (estradiol 1 mg oral tablet) 1 tab(s) Oral every day. MAGRU. Refills: 0. ibuprofen (ibuprofen 600 mg oral tablet) 1 tab(s) Oral every 6 hours as needed Pain - Mild. Refills: 0. Take only the medications listed above. Contact your doctor prior to taking any medications not on this list. Medication leaflets, if any, will display below Diet & Activity Patient Activity Level: As Tolerated Patient Diet: Patient Activity Restrictions: Patient education materials, if any, will display below Abdomnial Hysterectomy, Care After Refer to this sheet in the next few weeks. These instructions provide you with information on caring for yourself after your procedure. Your health care provider may also give you more specific instructions. Your treatment has been planned according to current medical practices, but problems sometimes occur. Call your health care provider if you have any problems or questions after your procedure. WHAT TO EXPECT AFTER THE PROCEDURE After your procedure, it is typical to have the following: ? Abdominal pain. You will be given pain medicine to control it. ? Sore throat from the breathing tube that was inserted during surgery. HOME CARE INSTRUCTIONS ? Only take iqqy-qnj-bpeldyn or prescription medicines for pain, discomfort, or fever as directed by your health care provider. ? Do not take aspirin. It can cause bleeding. ? Do not drive when taking pain medicine. ? Follow your health care provider's advice regarding diet, exercise, no lifting over 20 lbs for (2) weeks, no driving for (1) week or while still taking narcotic pain medication, and general activities including walking often ? Resume your usual diet as directed and allowed. ? Get plenty of rest and sleep. ? Do not douche, use tampons, or have sexual intercourse for at least 6 weeks, or until your health care provider gives you permission. ? Monitor your temperature and notify your health care provider of a fever or temperature greater than 100.6 degrees ? Take showers instead of baths for 2?3 weeks. Shower daily. ? Do not drink alcohol until your health care provider gives you permission. ? If you develop constipation, you may take a milk of magnesia or Dulcolax Suppositoryor tablets. Bran foods may help with constipation problems. Drinking enough fluids to keep your urine clear or pale yellow may help as well. ? Try to have someone home with you for 1?2 weeks to help around the house. ? Keep your after surgery 2 week folllow up appointment. Call Dr Ryan's office for an appointment time if you do no already have one. SEEK MEDICAL CARE IF: ? You have swelling, redness, or increasing pain around your incision sites. ? You have pus coming from your incision. ? You notice a bad smell coming from your incision. ? Your incision breaks open. ? You feel dizzy or lightheaded. ? You have pain or bleeding when you urinate. ? You have persistent diarrhea. ? You have persistent nausea and vomiting. ? You have abnormal vaginal discharge. ? You have a rash. ? You have any type of abnormal reaction or develop an allergy to your medicine. ? You have poor pain control with your prescribed medicine. SEEK IMMEDIATE MEDICAL CARE IF: ? You have a fever. ? You have severe abdominal pain. ? You have chest pain. ? You have shortness of breath. ? You faint. ? You have pain, swelling, or redness in your leg. ? You have heavy vaginal bleeding with blood clots. MAKE SURE YOU: ? Understand these instructions. ? Will watch your condition. ? Will get help right away if you are not doing well or get worse. This information is not intended to replace advice given to you by your health care provider. Make sure you discuss any questions you have with your health care provider. Document Released: 03/03/2012 Document Revised: 03/20/2014 Document Reviewed: 09/28/2013 [employer] Interactive Patient Education ?2015 [employer]. Viruses or Bacteria What?s got you sick? Antibiotics only treat bacterial infections. Viral illnesses cannot be treated with antibiotics. When an antibiotic is not prescribed, ask your healthcare professional for tips on how to relieve symptoms and feel better. Usual Cause Illness Viruses Bacteria Antibiotic Needed Cold/Runny Nose NO Bronchitis/Chest Cold (in otherwise healthy children and adults) NO Whooping Cough Yes Flu NO Strep Throat Yes Sore Throat (except strep) NO Fluid in the middle ear (otitis media with effusion) NO Urinary Tract Infection Yes Antibiotics Aren?t Always the Answer www.cdc.gov/getsmart GET SMART Know When Antibiotics Work U.S. Department of Health and Human Services Centers for Disease Control and Prevention November 2013 [facility] Pathology Sendout Teston Pathology Send Out. See Report Normal [facility] Comment on above: Order Comment: Posto p dx: PELVIC PAIN, DYSFUNCTIONAL UTERINE BLEEDINGSpecimen: Uterus, bilateral fallopian tubes and ovaries Performed By: #### 2 [id number] ####[facility] (DEFAULT)[address] [place] [address] .Auto Diff 1on 11-16-2018 Auto Alcorn % 10 % Normal -12 [facility] Comment on above: Performed By: #### 7 [id number], [id number] #### [facility] (DEFAULT) [address] [place] [address] Baso Abs# 0.0 x10 Normal 0.0-0.2 [facility] Comment on above: Performed By: #### 7 [id number], [id number] #### [facility] (DEFAULT) [address] [place] [address] Basophils/100 WBC (Bld) 0.2 % Normal 0.2-2.0 [facility] Comment on above: Performed By: #### 7 [id number], [id number] #### [facility] (DEFAULT) [address] [place] [address] Eos Abs# 0.1 x10 Normal 0.0-0.4 [facility] Comment on above: Performed By: #### 7 [id number], [id number] #### [facility] (DEFAULT) [address] [place] [address] Eosinophils/100 WBC (Bld) 1.2 % Normal 0.9-4.0 [facility] Comment on above: Performed By: #### 7 [id number], [id number] #### [facility] (DEFAULT) [address] [place] [address] 20981 Lymphocytes (Bld) [#/Vol] 1.6 x10 Normal 1.3-2.9 [facility] Comment on above: Performed By: #### 7 [id number], [id number] #### [facility] (DEFAULT) [address] [place] [address] Lymphocytes/100 WBC (Bld) 18 % Normal 14-48 [facility] Comment on above: Performed By: #### 7 [id number], [id number] #### [facility] (DEFAULT) [address] [place] [address]77 Alcorn Abs# 0.8 x10 Normal 0.0-0.8 [facility] Comment on above: Performed By: #### 7 [id number], [id number] #### [facility] (DEFAULT) [address] [place] [address] 92217 Neut Abs# 5.9 x10 Normal 1.5-9.2 [facility] Comment on above: Performed By: #### 7 [id number], [id number] #### [facility] (DEFAULT) [address] [place] [address] 00015 Neutrophils/100 WBC (Bld) 70 % Normal 44-88 [facility] Comment on above: Performed By: #### 7 [id number], [id number] #### [facility] (DEFAULT) [address] [place] [address] 41255 CBC w/ Auto Diffon 9 Erythrocyte distribution width (RBC) [Ratio] 11.9 % Normal 11.5-15.0 [facility] Comment on above: Performed By: #### 7 [id number], [id number] #### [facility] (DEFAULT) [address] [place] [address] Hematocrit (Bld) [Volume fraction] 33.2 % Low 33.7-40.4 [facility] Comment on above: Performed By: #### 7 [id number], [id number] #### [facility] (DEFAULT) [address] [place] [address] Hemoglobin (Bld) [Mass/Vol] 11.2 g/dL Low 11.3-15.9 [facility] Comment on above: Performed By: #### 7 [id number], [id number] #### [facility] (DEFAULT) [address] [place] [address] Man Diff? Auto Normal [facility] Comment on above: Performed By: #### 7 [id number], [id number] #### [facility] (DEFAULT) [address] [place] [address] MCH (RBC) [Entitic mass] 31 pg Normal 24-34 [facility] Comment on above: Performed By: #### 7 [id number], [id number] #### [facility] (DEFAULT) [address] [place] [address]25 MCHC (RBC) [Mass/Vol] 34 g/dL Normal 26-37 [facility] Comment on above: Performed By: #### 7 [id number], [id number] #### [facility] (DEFAULT) [address] [place] [address]99 MCV (RBC) [Entitic vol] 92 fL Normal 81-100 [facility] Comment on above: Performed By: #### 7 [id number], [id number] #### [facility] (DEFAULT) [address] [place] [address] 89874 Platelet mean volume (Bld) [Entitic vol] 8.5 fL Normal 6.3-10.2 [facility] Comment on above: Performed By: #### 7 [id number], [id number] #### [facility] (DEFAULT) [address] [place] [address] 08669 Platelets (Bld) [#/Vol] 269 x10 Normal 138-427 [facility] Comment on above: Performed By: #### 7 [id number], [id number] #### [facility] (DEFAULT) [address] [place] [address] RBC (Bld) [#/Vol] 3.60 x10 Low 3.70-5.30 [facility] Comment on above: Performed By: #### 7 [id number], [id number] #### [facility] (DEFAULT) [address] [place] [address] WBC (Bld) [#/Vol] 8.4 x10 [facility] Comment on above: Performed By: #### 7 [id number], [id number] #### [facility] (DEFAULT) [address] [place] [address] Extra Greenon 11-16-2018 Tube Collected Yes [facility] Comment on above: Performed By: #### 7 [id number], [id number] #### [facility] (DEFAULT) [address] [place] [address] MAGR Intraoperative Recordon 11-16-2018 MAGR Intraoperative Record MAGR Intra-Op Record Summary Primary Physician: Curtis Ryan DO Finalized Date/Time: 11/16/18 15:21:40 Pt. Name: ELDA SAMPSON/Sex: 1990 FEMALE Med Rec #: [id number] Physician: Curtis Ryan DO Financial #: [id number] Pt. Type: I Room/Bed: [facility]/1 Admit/Disch: 11/15/18 05:46:00 - Institution: Case Times MAGR Entry 1 Patient In Room Time 11/15/18 07:56:00 Out Room Time 11/15/18 10:38:00 Anesthesia Start Time 11/15/18 07:57:00 Stop Time 11/15/18 10:42:00 Surgery Start Time 11/15/18 08:26:00 Stop Time 11/15/18 10:30:00 Last Modified By: Phyllis Madison RN 11/15/18 10:47:49 Case Attendance MAGR Entry 1 Entry 2 Entry 3 Case Attendee Curtis Rayn DO, RN, Sushma Wills RN Role Performed Surgeon - Primary Child Care Supervisor Child Care Supervisor Time In 11/15/18 07:56:00 11/15/18 07:56:00 11/15/18 07:56:00 Time Out 11/15/18 10:38:00 11/15/18 10:38:00 11/15/18 10:38:00 Procedure Hysterectomy Abdominal Hysterectomy Abdominal Hysterectomy Abdominal Total Total Total Last Modified By: Gricelda ROB, Phyllis Madison RN, Phyllis Madison RN, Phyllis 11/15/18 10:36:33 11/15/18 10:36:33 11/15/18 10:36:33 Entry 4 Entry 5 Entry 6 Case Attendee Camila JONES, Malika Causey CST, Regina CST Role Performed Scrub Personnel Scrub Personnel Studio Designer Time In 11/15/18 07:56:00 11/15/18 07:56:00 11/15/18 07:56:00 Time Out 11/15/18 10:38:00 11/15/18 10:38:00 11/15/18 10:38:00 Procedure Hysterectomy Abdominal Hysterectomy Abdominal Hysterectomy Abdominal Total Total Total Last Modified By: Gricelda ROB, Phyllis Madison RN, Phyllis Madison RN, Phyllis 11/15/18 10:36:33 11/15/18 10:36:33 11/15/18 10:36:33 Entry 7 Case Attendee Mateusz Stoner MD Role Performed Anesthesiologist of Record Time In 11/15/18 07:56:00 Time Out 11/15/18 10:38:00 Procedure Hysterectomy Abdominal Total Last Modified By: Phyllis Madison RN 11/15/18 10:36:33 Surgical Procedures MAGR Pre-Care Text: A.20 Verifies operative procedure, surgical site, and laterality Im.150 Develops individualized plan of care Entry 1 Procedure Hysterectomy Abdominal Primary Procedure Yes Total Primary Surgeon Curtis Ryan DO Surgeon Comment TOTAL ABDOMINAL HYSTERECTOMY Start 11/15/18 08:26:00 Stop 11/15/18 10:30:00 Anesthesia Type General Surgical Service Gynecology Wound Class Clean-Contaminated Technique Details Closure Technique Primary Entire procedure No was performed via laparoscope or robotic assistance Last Modified By: Phyllis Madison RN 11/15/18 10:47:12 Post-Care Text: O.730 The patient's care is consistent with the individualized perioperative plan of care General Case Data MAGR Pre-Care Text: A.350.1 Classifies surgical wound Entry 1 Case Information OR MAGR OR 05 Case Level Level 5 Wound Class Clean-Contaminated Specialty Gynecology ASA Class 2 Diagnosis Preop Diagnosis PELVIC PAIN, Postop Same As Preop Yes DYSFUNCTIONAL UTERINE BLEEDING Postop Diagnosis PELVIC PAIN, DYSFUNCTIONAL UTERINE BLEEDING Blunt or No Is the procedure No penetrating injury considered occured prior to Emergent/Urgent? the start of the procedure: Last Modified By: Phyllis Madison RN 11/15/18 08:30:04 Post-Care Text: O.760 Patient receives consistent and comparable care regardless of the setting Time Out MAGR Entry 1 Time out date/time 11/15/18 08:24:00 All team members Yes have introduced themselves by name and role Surgeon, Yes Surgeon reviews Yes anesthesia, nurse critical or confirm patient, unexpected steps, site, procedure operative duration, anticipated blood loss Anesthesia team Yes Nursing team Yes reviews any reviews sterility patient-specific (including concerns indicator results) and equipment issues/concerns Antibiotic Antibiotic Yes Administration Time 07:52 prophylaxis given within the last 60 minutes Is essential N/A imaging displayed? Last Modified By: Phyllis Madison RN 11/15/18 08:32:21 Patient Positioning MAGR Pre-Care Text: A.280 Identifies baseline musculoskeletal status Im.40 Positions the patient Im.80 Applies safety devices Entry 1 Procedure Hysterectomy Abdominal Body Position Supine Total Left Arm Position Tucked and padded at Right Arm Position Extended on padded arm side board Left Leg Position Extended Right Leg Position Extended Feet Uncrossed? Yes Press Points Checked Yes Positioning Device Safety Strap Outcome Met (O.80) Yes Last Modified By: Phyllis Madison RN 11/15/18 08:33:13 Post-Care Text: E.290 Evaluates musculoskeletal status O.80 Patient is free from signs and symptoms of injury related to positioning Skin Prep MAGR Pre-Care Text: A.30 Verifies allergies Im.270 Performs skin preparation Im.270.1 Implements protective measures to prevent skin and tissue injury due to chemical sources Entry 1 Skin Prep Syntegrity Prep Agents (Im.270) Chlorhexidine Gluconate Prep By Phyllis Madison RN and Alcohol, Povidone-Iodine Prep Area (Im.270) Abdomen, Perineum Skin Prep Agent Dry Yes Without Pooling Hair Removal Syntegrity Hair Removal Methods No hair removal performed Outcome Met (O.100) Yes Last Modified By: Phyllis Madison RN 11/15/18 09:00:08 Post-Care Text: E.10 Evaluates for signs and symptoms of physical injury to skin and tissue O.100 Patient is free from signs and symptoms of chemical injury Counts Verification MAGR Pre-Care Text: A.20 Verifies operative procedure, surgical site, and laterality A.20.2 Assesses the risk for unintended retained foreign body Im.20 Performs required counts Entry 1 Procedure Hysterectomy Abdominal Total Counts Verification Initial Counts Items included in Instruments, Sponges, Initial Counts Manual the Initial Count Sharps Method Initial Counts Mayte Jensen CST, Initial Count Time 11/15/18 07:55:00 Performed By Sushma Hastings RN Counts Verification Final Counts Items Included in Instruments, Sponges, Final Count Method Manual Final Count Sharps Final Count Status Correct Final Counts Phyllis Madison RN, Performed By Mayte Jensen CST Final Count Time 11/15/18 10:09:00 Surgeon notified of Yes final counts status Outcome Met (O.20) Yes Last Modified By: Phyllis Madison RN 11/15/18 10:09:08 Post-Care Text: E.50 Evaluates results of the surgical count O.20 Patient is free from unintended retained foreign objects Patient Care Devices MAGR Pre-Care Text: A.200 Assesses risk for normothermia regulation A.40 Verifies presence of prosthetics or corrective devices Im.280 Implements thermoregulation measures Im.60 Uses supplies and equipment within safe parameters Entry 1 Entry 2 Equipment Type upper body warmer calf leg pumps Serial ?# [id number] Equipment Setting FACTORY DEFAULT SET 43 FACTORY DEFAULT SET degrees julio cesar Last Modified By: Phyllis Madison RN, RN, Jennifer 11/15/18 08:38:13 11/15/18 08:38:13 Post-Care Text: E.10 Evaluates signs and symptoms of physical injury to skin and tissue O.700 Patient is free from signs and symptoms of injury caused by extraneous objects Cautery MAGR Pre-Care Text: A.240 Assesses baseline skin condition A.40 Verifies presence of prosthetics or corrective devices Im.50 Implements protective measures to prevent injury due to electrical sources Entry 1 ESU Type Electrosurgical Unit ESU Settings Syntegrity Cut Setting 50 Coag Setting 50 Grounding Pad Details Grounding Pad Yes Verified By Phyllis Madison RN Needed? Grounding Pad Site Table Grounding Pad Outcome Met (O.10) Yes Last Modified By: Phyllis Madison RN 11/15/18 08:39:01 Post-Care Text: E.10 Evaluates for signs and symptoms of physical injury to skin and tissue O.10 Patient is free from signs and symptoms of injury related to thermal sources Catheters, Drains & Tubes MAGR Pre-Care Text: A.310 Identifies factors associated with an increased risk for hemorrhage or fluid and electrolyte imbalance Im.250 Administers care to invasive device sites Entry 1 Device Description TRAY URINE METER JASSO Device Type Urethral Location Urethra Balloon Inflation 5CC Amount Present on Arrival? No Inserted By Phyllis Madison RN Inserted Date/Time 11/15/18 08:19:00 DC'd at End of Case? No Drainage Details Drainage? Yes Urinary Catheter Hand Hygiene Performed Outcome Met (O.60) Yes Checklist Before and After Insertion, Aseptic Technique and Sterile Equipment Used, Perineal Area Cleansed Before Insertion, Catheter Properly Secured, Collection Bag Positioned Below Bladder Last Modified By: Phyllis Madison RN 11/15/18 08:43:30 Post-Care Text: E.340 Evaluates tubes and drains are intact and functioning as planned O.60 Patient is free from signs and symptoms of injury caused by extraneous objects Cultures and Specimens MAGR Pre-Care Text: A.350 Assesses susceptibility for infection A.10 Confirms patient identity Im.320 Manages culture specimen collection Im.330 Manages specimen handling and disposition Entry 1 Cultures Ordered No Specimens Ordered Yes Outcome Met (O.40) Yes Last Modified By: Phyllis Madison RN 11/15/18 08:44:14 Post-Care Text: E.40 Evaluates correct processes have been performed for specimen handling and disposition O.40 Patient's specimen(s) is managed in the appropriate manner Medication Administration MAGR Pre-Care Text: A.210 Identifies physiological status Im.220 Administers prescribed medications Entry 1 Entry 2 Entry 3 Time Administered 11/15/18 08:44:00 11/15/18 09:17:00 11/15/18 09:37:00 Medication 0.25% marcaine with epi sterile water Surgicel 2X 14 (1:200,000) Route of Admin Incisional/Surgical Site injectable intracavitary Dose 20 mL 10 mL Volume 30 mL 50 mL By Curtis Ryan DO, Barbara RN Harrison DO, Kurt D Outcome Met (O.130) Yes Yes Yes Last Modified By: Phyllis Madison RN, Barbara RN McKenna RN, Jennifer 11/15/18 10:16:26 11/15/18 09:17:50 11/15/18 09:39:23 Post-Care Text: E.20 Evaluates response to medications O.130 Patient receives appropriately administered medication(s) General Comments: sterile water used for jasso balloon intraop Dressing/Packing MAGR Pre-Care Text: A.350 Assesses susceptibility for infection Im.290 Administer care to wound sites Entry 1 Skin Prep Agent No Removed Prior to Dressing? Dressing Item Details Dressing Item 4x4's Tape (Im.290) Wound Closure Strip, (Im.290) Paper Outcome Met Yes Last Modified By: Pyhllis Madison RN 11/15/18 10:47:43 Post-Care Text: E.200 Evaluates progress of wound healing O.200 Patient's wound perfusion is consistent with or improved from baseline levels Counts Verif Addtnl MAGR Pre-Care Text: A.20 Verifies operative procedure, surgical site, and laterality A.20.2 Assesses the risk for unintended retained foreign body Im.20 Performs required counts Entry 1 Procedure Hysterectomy Abdominal Items Counted Instruments, Sharps, Total Sponges Count Method: Manual Personnel Phyllis Maidson RN, Performing Count: Mayte Jensen CST Date and Time 11/15/18 10:01:00 Count Results: Correct Surgeon notified? Yes Last Modified By: Phyllis Madison RN 11/15/18 10:01:17 Post-Care Text: E.50 Evaluates results of the surgical count O.20 Patient is free from unintended retained foreign objects Departure from OR MAGR Entry 1 Present on Depart Oxygen, Monitored Via Bed Post-op Destination PACU II Skin DFO Condition Dry Description Condition Warm Description Condition Intact Description Airway Maintenance Patient Status Stable Oxygen in Use? Yes Airway Device Simple mask Flow Rate 15 L/min Last Modified By: Phyllis Madison RN 11/15/18 08:46:12 Case Comments Finalized By: Sushma Hastings RN Document Signatures Signed By: Phyllis Madison RN 11/15/18 10:48 Sushma Hastings RN 11/16/18 15:21 Unfinalized History Date/Time Username Reason for Unfinalizing Freetext Reason for Unfinalizing 11/16/18 15:21 MHBLONG Modify Pick List [facility] Nutrition Noteon 11-16-2018 Nutrition Note Pt admitted for scheduled total abdominal hysterectomy. Diet has been advanced to regular, ate 100% this am for breakfast. Pt at low nutritional risk. Will continue to monitor. [facility] Pharmacy Noteon 11-16-2018 Pharmacy Note Patient is a 28 Year s yo FEMALE presenting with Diagnosis for this visit No Recorded Diagnosis for hysterectomy Counseled: Patient Family Member New Medications: Include the following:estradiol and Percocet Counseling Points Discussed: Indications, side effects and compliance Additional time was spent discussing hormone replacement therapy for this younger female patient. Handouts: Medication education materials, Personal Medication Record, and Meds to Beds information Assessment of patient/representativ e's response to counseling: Patient/Representativ e was engaged in counseling session and verbalized understanding Patient/representativ e found counseling beneficial Meds to Beds: Accepted and will make the notation in the patients record Other Comments: N/A [Electronically Signed on: 11/16/2018 16:28 EDT] Tianna Ewing [Verified on: 11/16/2018 16:28 EDT] Tianna Ewing [facility] Progress Note - Nurseon 10-28 Progress Note - Nurse void x's 3 this morning , 2 percocets administered for #7 incisional pain , abdominal dressing removed steri strips intact, approximate , using pillow to splint incision when getting oob , ambulating in harvey x3 , 100% breakfast taken , lungs clear, will continue to monitor. [Electronically Signed on: 11/16/2018 12:23 EDT] Shital Orr RN [Verified on: 11/16/2018 12:23 EDT] Shital Orr RN [facility] Anesthesia Noteon 11-15-2018 Anesthesia Note Patient: ELDA SAMPSON Age: 28 years Sex: FEMALE : 1990 Associated Diagnoses: None Author: Mateusz Stoner MD Preoperative Information Anesthesia history: Patient history: Nausea and vomiting with anesthesia. Review of Systems Constitutional: Negative. Respiratory: No shortness of breath. Cardiovascular: No chest pain. Health Status Allergies: Allergic Reactions (All) Severity Not Documented Clindamycin- Swelling. Penicillin- Swelling. Vicodin- Rash and itching. Nonallergic Reactions (All) Severity Not Documented Adhesive Bandage- Rash. Current medications: Home Medications (3) Active albuterol 90 mcg/inh inhalation aerosol 2 puff(s), PRN, INH, QID buPROPion 150 mg/24 hours (XL) oral tablet, extended release 150 mg = 1 tab(s), PO, q24hr medroxyPROGESTERone 150 mg/mL intramuscular suspension Problem list (past medical history): All Problems Asthma / SNOMED CT 824989963 / Confirmed Fatigue / SNOMED CT 018018456 / Confirmed History of reactive airway disease / SNOMED CT 111163266 / Confirmed Resolved: Current smoker / SNOMED CT 355021618 Histories Family History: Heart attack Mother Hypercholesterolemia Mother Father Stroke.... Father Grandparent Hypertension Mother Father Procedure history: Appendectomy (326037570). section (40501831). Comments: 09/06/2017 14:18 EDT - Aarti Resendez RN x2 Tubal ligation (184386978). Cyst (4473818702). Comments: 11/04/2018 13:17 SHAMIR - Eriberto Oneill RN cyst removal from ovaries, scar tissue removal Social History Alcohol Assessment Use: Current. 1-2 times per month Tobacco Assessment 10 or more cigarettes (1/2 pack or more)/day in last 30 days Tobacco Use:. Comment: pt has quit smoking about 2 weeks ago Substance Abuse Assessment Substance use: Never. . Social & Psychosocial Habits Alcohol 09/06/2017 Alcohol Use: Current Frequency: 1-2 times per month Substance Abuse 11/04/2018 Substance use: Never Tobacco 09/06/2017 Smoking tobacco use: 10 or more cigarettes (1/ Comment: pt has quit smoking about 2 weeks ago - 11/04/2018 13:19 - Eriberto Oneill RN . Physical Examination VS/Measurements Vital Signs (last 24 hrs) Last Charted Heart Rate Peripheral 76 bpm (NOV 15 06:12) Resp Rate 16 br/min (NOV 15:12) SBP 110 mmHg (NOV 15:23) DBP 71 mmHg (NOV 15:23) SpO2 100 % (NOV 15 06:12) Weight 63.600 kg (NOV 15 06:12) Height 157.48 cm (NOV 15 06:12) General: Alert and oriented. Airway: Mallampati classification: II (soft palate, fauces, uvula visible). Mouth: Teeth ( Chipped posteriorly ). Respiratory: Respirations are non-labored. Cardiovascular: Normal rate, Regular rhythm. Review / Management Laboratory Results Plan [place] [employer]#( A) physical status classification: Class II. Anesthetic Preoperative Plan Anesthesia: General. . Anesthetic plan, risks, benefits, and alternatives discussed with the patient and/or family. Patient verbalized understanding. Family/Guardian present. Informed consent was given. Consent was signed by the patient. Mother present. Communication: face to face with patient 10 minutes. Anesthetic technique: General anesthesia. [Electronically Signed on: 11/15/2018 07:46 EDT] Mateusz Stoner MD [Verified on: 11/15/2018 07:46 EDT] Mateusz Stoner MD [facility] Coding Summaryon 11-15-2018 Coding Summary CODING DATE: 11/15/2018 [facility] STATUS: Home PAYOR: Medicaid HMO ADMIT DX: REASON FOR VISIT DX: Z01.812 Encounter for preprocedural laboratory examination FINAL DX: PRINCIPAL: Z01.812 Encounter for preprocedural laboratory examination SECONDARY: PYMT PROC APC STAT DESCRIPTION DOCTOR NAME DATE NOTE: The code number assigned matches the documented diagnosis and / or procedure in the patient's chart. However, the narrative phrase printed from the coding software may appear abbreviated, or result in slightly different terminology. Coded By: Rosa Tai Date Saved: 11/15/2018 03:30 pm [facility] PACU Record MAGR PACU Record Summary Primary Physician: Curtis Ryan DO Finalized Date/Time: 11/15/18 14:08:08 Pt. Name: ELDA SAMPSON/Sex: 1990 FEMALE Med Rec #: [id number] Physician: Curtis Ryan DO Financial #: [id number] Pt. Type: I Room/Bed: 229/1 Admit/Disch: 11/15/18 05:46:00 - Institution: PACU Case Times MAGR Entry 1 In PACU I 11/15/18 10:35:00 Ready for PACU I 11/15/18 11:50:00 Discharge Discharge from PACU 11/15/18 11:50:00 I Last Modified By: Fanny Tenorio RN 11/15/18 14:08:04 General Comments: Dischargee to nursing unit per Dr Stoner using discharge criteria. Finalized By: Fanny Tenorio RN Document Signatures Signed By: Fanny Tenorio RN 11/15/18 14:08 Normal [facility] Operative Report - Surgeon/P neda 11-15-2018 Operative Report - Surgeon/Physician DATE OF PROCEDURE: 11/15/2018 PREOPERATIVE DIAGNOSIS: Pelvic pain, dysfunctional uterine bleeding. POSTOPERATIVE DIAGNOSIS: Pelvic pain, dysfunctional uterine bleeding. Pending pathology. PROCEDURE: Total abdominal hysterectomy and bilateral salpingo-oophorectomy , extensive adhesiolysis SURGEON: Curtis Ryan DO ANESTHESIA: Mateusz Stoner M.D. (General) COMPLICATIONS: None. ESTIMATED BLOOD LOSS: 300 cc. URINE OUTPUT: Approximately 200 cc of clear urine at the end of the procedure. FLUIDS: Approximately 1500 cc of Lactated Ringers. FINDINGS: Normal size and appearing uterus with bladder adhesions to the lower uterine segment extensive in nature; ovaries bilaterally normal appearing with tubes status post tubal and tubes adhesed to the side zafar bilaterally. All specimens were sent to pathology. PROCEDURE: The risks, benefits, indications and alternatives of the procedure were reviewed with the patient and informed consent was obtained. The patient was taken to the operating room with IV running and received Ancef 2 gm IV piggyback. The patient was placed in the supine position. A Jasso catheter was placed after being given general anesthesia, back in the supine position, and she was prepped and draped in the normal sterile fashion. Next, a Pfannenstiel incision was made approximately 2.5 cm above the pubic symphysis and this was extended sharply to the rectus fascia. The fascia was then incised bilaterally with the curved Jacobs scissors and the muscles of the anterior abdominal wall were in the midline by sharp and blunt dissection. The peritoneum was then grasped between two pick-ups, elevated and entered sharply with the Metzenbaum scissors. The pelvis was examined with the findings as noted above. Next, an O'Kelvin/O'Mixon retractor was placed into the incision, and the bowel was packed away with moist laparotomy sponges. Two large Millie's were then placed on the cornua and used for retraction. The round ligaments on both sides were then clamped with a LigaSure, coagulated and cut. The anterior leaf of the broad ligament was incised along the bladder reflection to the midline from both sides noting an extensive bladder adhesion to the lower uterine segment. This required additional adhesiolysis as the scar tissue was thickened and slightly indurated. The bladder was then sharply dissected off the lower uterine segment and the cervix after continued adhesiolysis of the bladder adhesions to the lower uterine segment. Next, the infundibulopelvic ligaments on both sides were then doubly clamped with the Bonnie clamps, transected and suture ligated with O Vicryl. Hemostasis was visualized. The uterine arteries were then skeletonized bilaterally and then clamped with the LigaSure, coagulated and cut. Again, hemostasis was assured. The uterosacral ligaments were then clamped with Bonnie clamps on both sides, transected and suture ligated in a similar fashion. When the infundibulopelvic ligaments were being dissected, scar tissue of the remaining portion of the two widths bilaterally which were status post tubal were adhesed to the side wall and they were serially clamped and cut with good hemostasis noted for further adhesiolysis. Next the cervix and uterus was amputated with the curved Jacobs's. The vaginal cuff angles were closed with xyeaee-cn-wnydo stitches of O Vicryl and were transfixed to the ipsilateral cardinal and uterosacral ligaments. The remainder of the vaginal cuff was closed with a series of interrupted O Vicryl [id number]-sn-[id number] sutures. Also, interlocking O Vicryl sutures were used. Excellent hemostasis was assured. Part of the peritoneum was closed on the patient's left side to allow for excellent hemostasis. The pelvis was irrigated copiously with warm normal saline. All laparotomy sponges and instruments were removed from the abdomen. The peritoneum was partially closed until the peritoneum was obscured and could not be seen to close the remaining portion. The fascia was then closed with running O Vicryl and hemostasis was assured. The skin was closed in a subcuticular manner with 4-0 Monocryl on a curved needle. Sponge, lap, needle and instrument counts were correct x2. The patient did receive Ancef 2 grams IV piggyback just prior to the beginning of the procedure. The patient was taken to the PACU awake and in stable condition. Prior to closing, the decision was made to place Surgicel over the remaining vaginal stump. Excellent hemostasis was noted. Curtis Ryan DO JOB #: [id number] [Electronically Signed on: 11/16/2018 19:00 EDT] Curtis Ryan DO [Verified on: 11/16/2018 19:00 EDT] Curtis Ryan DO [Transcribed on: 11/15/2018 15:02 EDT] GDU [facility] Test Urine 1on U Preg Negative [facility] Comment on above: Performed By: #### 3 [id number] #### [facility] (DEFAULT) [address] [place] [address] U Preg Internal Control Pass [facility] Comment on above: Performed By: #### 3 [id number] #### [facility] (DEFAULT) [address] [place] [address] Progress Note - Nurseon 10-28 Progress Note - Nurse Pt. walked to the side rail across the harvey from her room, about 12 feet, hunged over, slow, and grimicing. Much persuation needed to get out of bed. Encouraged pt. to cough and deep breath and practiced breathing exercises with her. Attempted to get a dinner order for her and after 100 options given, a decision was finally made. Repositioned in back to bed with pillows under knees and lumbar support. Informed pt. we will walk after dinner. [Electronically Signed on: 11/15/2018 16:58 EDT] Alexandre Fernandez RN [Verified on: 11/15/2018 16:58 EDT] Alexandre Fernandez RN [facility] UA w Culture if Ind Standard on 11-15-2018 Breakpoint UA Normal [facility] Comment on above: Order Comment: at fo jany insertion Performed By: #### 1 [id number] #### [facility] (DEFAULT) [address] [place] [address] Color (U) YELLOW [facility] Comment on above: Order Comment: at fo jany insertion Performed By: #### 1 [id number] #### [facility] (DEFAULT) [address] [place] [address] Culture? Not Indicated [facility] Comment on above: Order Comment: at fo jany insertion Performed By: #### 1 [id number] #### [facility] (DEFAULT) [address] [place] [address] Glucose (U) [Mass/Vol] Negative [facility] Comment on above: Order Comment: at fo jany insertion Performed By: #### 1 [id number] #### [facility] (DEFAULT) [address] [place] [address] Ketones Ql (U) Negative [facility] Comment on above: Order Comment: at fo jany insertion Performed By: #### 1 [id number] #### [facility] (DEFAULT) [address] [place] [address] Micro? Not Indicated [facility] Comment on above: Order Comment: at fo jany insertion Performed By: #### 1 [id number] #### [facility] (DEFAULT) [address] [place] [id number] UA Bilirubin Negative Normal [facility] Comment on above: Order Comment: at fo jany insertion Performed By: #### 1 [id number] #### [facility] (DEFAULT) [address] [place] [id number] UA Blood Negative Normal NEGATIVE [facility] Comment on above: Order Comment: at fo jany insertion Performed By: #### 1 [id number] #### [facility] (DEFAULT) [address] [place] [id number] UA Clarity CLEAR Normal CLEAR [facility] Comment on above: Order Comment: at fo jany insertion Performed By: #### 1 [id number] #### [facility] (DEFAULT) [address] [place] [address] UA Leuk Est Negative Normal NEGATIVE [facility] Comment on above: Order Comment: at fo jany insertion Performed By: #### 1 [id number] #### [facility] (DEFAULT) [address] [place] [address] UA Nitrite Negative Normal NEGATIVE [facility] Comment on above: Order Comment: at fo jany insertion Performed By: #### 1 [id number] #### [facility] (DEFAULT) [address] [place] [address] UA pH 7.0 5-8 [facility] Comment on above: Order Comment: at fo jany insertion Performed By: #### 1 [id number] #### [facility] (DEFAULT) [address] [place] [address] UA Protein Negative Normal NEGATIVE [facility] Comment on above: Order Comment: at fo jany insertion Performed By: #### 1 [id number] #### [facility] (DEFAULT) [address] [place] [address] UA Spec Grav 1.010 1.001-1.035 [facility] Comment on above: Order Comment: at fo jany insertion Performed By: #### 1 [id number] #### [facility] (DEFAULT) [address] [place] [address] UA Urobilinogen 0.2 mg/dL Normal 0.2-1.0 [facility] Comment on above: Order Comment: at fo jany insertion Performed By: #### 1 [id number] #### [facility] (DEFAULT) [address] [place] [address] Urine Source Clean Catch [facility] Comment on above: Order Comment: at fo jany insertion Performed By: #### 1 [id number] #### [facility] (DEFAULT) [address] [place] [address] Provider Orderson 2018 Provider Orders [id number]. [id number] [facility] .Auto Diff 1on 11-04-2018 Auto Alcorn % 8 % Normal 04-09 [facility] Comment on above: Performed By: #### 7 [id number] #### [facility] (DEFAULT) [address] [place] [id number] Baso Abs# 0.0 x10 Normal 0.0-0.2 [facility] Comment on above: Performed By: #### 7 [id number] #### [facility] (DEFAULT) [address] [place] [address] [id number] Basophils/100 WBC (Bld) 0.5 % Normal 0.2-2.0 [facility] Comment on above: Performed By: #### 7 [id number] #### [facility] (DEFAULT) [address] [place] [address] [id number] Eos Abs# 0.5 x10 High 0.0-0.4 [facility] Comment on above: Performed By: #### 7 [id number] #### [facility] (DEFAULT) [address] [place] [address] Eosinophils/100 WBC (Bld) 5.7 % High 0.9-4.0 [facility] Comment on above: Performed By: #### 7 [id number], [id number] #### [facility] (DEFAULT) [address] [place] [address] [id number] Lymphocytes (Bld) [#/Vol] 2.0 x10 Normal 1.3-2.9 [facility] Comment on above: Performed By: #### 7 [id number], [id number] #### [facility] (DEFAULT) [address] [place] [address] 32487 Lymphocytes/100 WBC (Bld) 22 % Normal 14-48 [facility] Comment on above: Performed By: #### 7 [id number], [id number] #### [facility] (DEFAULT) [address] [place] [address] 15457 Alcorn Abs# 0.7 x10 Normal 0.0-0.8 [facility] Comment on above: Performed By: #### 7 [id number], [id number] #### [facility] (DEFAULT) [address] [place] [address] 88086 Neut Abs# 5.6 x10 Normal 1.5-9.2 [facility] Comment on above: Performed By: #### 7 [id number], [id number] #### [facility] (DEFAULT) [address] [place] [address] Neutrophils/100 WBC (Bld) 64 % Normal 44-88 [facility] Comment on above: Performed By: #### 7 [id number], [id number] #### [facility] (DEFAULT) [address] [place] [address] CBC w/ Auto Diffon 9 Erythrocyte distribution width (RBC) [Ratio] 12.1 % Normal 11.5-15.0 [facility] Comment on above: Performed By: #### 7 [id number], [id number] #### [facility] (DEFAULT) [address] [place] [address] Hematocrit (Bld) [Volume fraction] 39.7 % Normal 33.7-40.4 [facility] Comment on above: Performed By: #### 7 [id number], [id number] #### [facility] (DEFAULT) [address] [place] [address] Hemoglobin (Bld) [Mass/Vol] 13.5 g/dL Normal 11.3-15.9 [facility] Comment on above: Performed By: #### 7 [id number], [id number] #### [facility] (DEFAULT) [address] [place] [address] Man Diff? Auto Normal [facility] Comment on above: Performed By: #### 7 [id number], [id number] #### [facility] (DEFAULT) [address] [place] [address] MCH (RBC) [Entitic mass] 32 pg Normal 24-34 [facility] Comment on above: Performed By: #### 7 [id number], [id number] #### [facility] (DEFAULT) [address] [place] [address] MCHC (RBC) [Mass/Vol] 34 g/dL Normal 26-37 [facility] Comment on above: Performed By: #### 7 [id number], [id number] #### [facility] (DEFAULT) [address] [place] [address] MCV (RBC) [Entitic vol] 93 fL Normal 81-100 [facility] Comment on above: Performed By: #### 7 [id number], [id number] #### [facility] (DEFAULT) [address] [place] [address] 67773 Platelet mean volume (Bld) [Entitic vol] 8.8 fL Normal 6.3-10.2 [facility] Comment on above: Performed By: #### 7 [id number], [id number] #### [facility] (DEFAULT) [address] [place] [address] 99707 Platelets (Bld) [#/Vol] 310 x10 Normal 138-427 [facility] Comment on above: Performed By: #### 7 [id number], [id number] #### [facility] (DEFAULT) [address] [place] [address] 17887 RBC (Bld) [#/Vol] 4.28 x10 Normal 3.70-5.30 [facility] Comment on above: Performed By: #### 7 [id number], [id number] #### [facility] (DEFAULT) [address] [place] [address] 28912 WBC (Bld) [#/Vol] 8.8 x10 Normal 3.5-10.5 [facility] Comment on above: Performed By: #### 7 [id number], [id number] #### [facility] (DEFAULT) [address] [place] [address] 12907 Vital Signs Date Time Vital Sign Value Performing Clinician Norah pichardo 11-05-2021 14:32-0400 Body height 157.48 cm Asim Vega APRN-EXCAVATING CONTRACTOR Work Phone: [facility] Work Phone: 11-05-2021 14:32-0400 Body mass index (BMI) [Ratio] 27.34 kg/m2 Asim KAPLAN Work Phone: [facility] Work Phone: 11-05-2021 14:32-0400 Body surface area Derived from formula 1.69 m2 Asim Gary ARCHITECTURE CONSULTANT-EXCAVATING CONTRACTOR Work Phone: [facility] Work Phone: 11-05-2021 13:26-0400 Body temperature 97.6 [degF] Asim Vega ARCHITECTURE CONSULTANT-EXCAVATING CONTRACTOR Work Phone: [facility] Work Phone: 11-05-2021 13:26-0400 Body weight 67.8 kg Asim Vega ARCHITECTURE CONSULTANT-EXCAVATING CONTRACTOR Work Phone: [facility] Work Phone: 11-05-2021 13:26-0400 Diastolic blood pressure 78 mm[Hg] Asim Vega ARCHITECTURE CONSULTANT-EXCAVATING CONTRACTOR Work Phone: [facility] Work Phone: 11-05-2021 13:26-0400 Heart rate 92 /min Asim Vega ARCHITECTURE CONSULTANT-EXCAVATING CONTRACTOR Work Phone: [facility] Work Phone: 11-05-2021 13:26-0400 Respiratory rate 16 /min Asim Vega ARCHITECTURE CONSULTANT-EXCAVATING CONTRACTOR Work Phone: [facility] Work Phone: 11-05-2021 13:26-0400 SaO2% (BldA) [Mass fraction] 98 % Asim Vega ARCHITECTURE CONSULTANT-EXCAVATING CONTRACTOR Work Phone: [facility] Work Phone: 11-05-2021 13:26-0400 Systolic blood pressure 124 mm[Hg] Asim Vega ARCHITECTURE CONSULTANT-EXCAVATING CONTRACTOR Work Phone: [facility] Work Phone: Encounters Encounter Date Encounter Type Care Provider Facility Start: 12-21-2023 End: 12-21-2023 ambulatory NEIL RIOS Not Available Start: 10-26-2023 End: 10-26-2023 ambulatory NEIL RIOS Not Available Start: 06-16-2023 End: 06-16-2023 ambulatory NEIL RIOS Not Available Start: 05-18-2023 End: 05-18-2023 ambulatory NEIL RIOS Not Available Start: 05-11-2023 Refill Neil Desir Work Phone: [facility] Comment on above: 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 Facility:[facility] Start: 12-02-2021 AUDIT Asim Vega APR N-EXCAVATING CONTRACTOR Work Phone: [id number] Work Phone: Start: 2021 End: 11-08-[address] NEIL RIOS Facility:[facility] Start: 11-05-2021 Patient encounter procedure Asim Vega ARCHITECTURE CONSULTANT-EXCAVATING CONTRACTOR Work Phone: [facility] Work Phone: Start: 10-10-2021 End: 10-11-[address] NEIL RIOS Facility:[facility] Plan of Treatment Date Care Activity Detail Author Start: 05-18-2023 End: 05-18-2023 Patient encounter procedure 05/18/2023 3:00 PM EST Office Visit [facility] [address] [place] [id number] Neil Rios MD [address] [place] [address] [facility] Start: 11-27-2022 Influenza vaccination Influenza Vacc ine (#1) [facility] Start: 12-05-2021 EPV, Provider: Asim Vega, Status: Pen, Time: 1:20 PM EPV, Provider: Asim Vega, Status: Pen, Time: 1:20 PM [facility] Work Phone: Start: 11-08-2019 Screening for malign ant neoplasm of cervix [facility] Start: 2010 Screening for malign ant neoplasm of cervix Pap Smear [facility] Payers Date Payer Category Payer Medicaid [employer] [place] [employer] [id number] 2017-Present [address] [place] [address] [id number] 1989 Unknown [id number] 1989 Unknown [id number] 1989 Unknown [id number] 1989 Unknown [id number] 1989 Unknown [id number] 1989 Unknown [id number] 1989 Unknown [id number] 1989 Unknown [id number] [id number] 1989 Unknown [id number] 1959 Unknown [id number] Unknown [facility] Social History Date Type Detail Facility Start: 04-01-2023 Tobacco smoking status NVIS Ex-smoke r [facility] End: 09-26-2018 History of tobacco use Current smoker [facility] End: 09-26-2018 History of tobacco use Cigarette Smoker [facility] Start: 04-01-2023 Cigarettes smoked cu rrent (pack per day) - Reported 0.5 [facility] Start: 04-01-2023 Tobacco use panel [facility] Start: 1990 Sex Assigned At Not on file [facility] Evaluation note Note Date & Type Note Facility Evaluation note Diagnosis ADD (attention deficit disorder) without hyperactivity Attention deficit disorder without mention of hyperactivity documented in this encounter [facility] History of Present illness Narrative Note Date & Type Note Facility History of Present illness Narrative This is a 30 year old WF with history of tobacco use, ADHD, migraines, and anxiety/depression who is presenting to the GI clinic for an initial visit.History per pt and records pull up on pt's cell phoneReports since childhood she's been having intermittent sharp RUQ abdominal pain lasting up to 2 weeks straight. Denies any aggravating or alleviating factors.Reports associated nausea.ROS positive for heartburn which has improved from prior.ROS positive for bloating and early satiety Diet incldues bread.Reports for past 5-6 months she's been having constipation alternating with diarrhea (50% of each) associated with lower abdominal cramping (improves with defecation). Stools range from small pellets to watery in nature. She can go 2 days without moving her bowels. She can have up to 3 episodes of diarhrae per day.Denies dysphagia, hematemesis, hematochezia, or melena.CBC, CMP, amulase, lipase with no major findgins (10/09/21)Reports having an unremarkable abdominal US i and HIDA scan at [facility].RUQ ultrasound unremarkable (2016)CT A/P w/o contrast 02/23/21 unrremarkableHIDA scan negative (2020)Dr. Tahir Webster/colonoscopy 04/07/21:EGD- LA grade A reflux esophagitis. Biopsied.- Normal stomach. Biopsied- normal duodenumColonoscopy up to cecum was normal (no specimens collected)EGD pathology:Gastric antrum: chronic reactive gastropathy/chemical gastritisDistal esophagus: fragments of gastroesopahgeal transitional mucosa with chronic, minimally active reflux related gastroesophagitis; intestinal metaplasia without dysplasia is idenifiedH pylori negativePast medical history:See abovePast surgical hsitory:C section s2Tiyxv ligationAppendectomy (2005)Hysterectomy- bilateral salpingo-oophorectomy for cystsLaparoscopyFamily history:Mother, brother, maternal grandmother, maternal aunt- cholecystectomyNo GI cancersSocial history:Smokes cigarettes; 1/2 PPD; has smoked intermittently for 10 yearsDrinks alcohol once every few months; denies any binge drinkingDenies use of illicit drugsBarrett's esophagus who is presenting to the GI clinic for an initial visit. CC stomach pain and nausea.Reports having an EGD/colonoscopy in 03/2021. EGD noted Higgins's esophagus. Reports having a negative HIDA scan.She still has gallbladder.Family history of gallbladder issues.Differentials include GERD, gastroparesis, functional dyspepsiaPlan: Get records. *Consider gastric emptying study. Consider PPI vs H2 raj vs sucralfate vs Gaviscon. Consider IBS treatments including low FODMAP diet, IBgard. Consider low dose TCA. EGD due in 2024 for surveillance of Higgins's [facility] [employer] Work Phone: Summary Purpose Family History No Family History Records FoundNo Family History Records FoundNo Family History Records FoundNo Family History Records FoundNo Family History Records Found Advance Directives No Advanced Directives Records FoundNo Advanced Directives Records FoundNo Advanced Directives Records FoundNo Advanced Directives Records FoundNo Advanced Directives Records Found Hospital Course Note [facility] Discharge Summary PERSON INFORMATION Name ELDA SAMPSON Age 28 Years 1990 Sex FEMALE Language Uzbek PCP NEIL RIOS Marital Status Single Med Service Med/Surg Acct# Arrival 11/15/2018 05:46:00 Visit Reason SURGERY-TOTAL ABDOMINAL HYSTERECTOMY Acuity [facility] Address: [address] [place] [address] Comment: PROVIDER INFORMATION VITALS INFORMATION Vital Sign Triage Latest Temp Oral Temp Temporal Temp Intravascular Temp Axillary Temp Rectal 02 Sat 97 % 97 % Respiratory Rate Peripheral Pulse Rate Apical Heart Rate Blood Pressure / 73 mmHg / 69 mmHg Comment: MEDICAL INFORMATION Allergy Info: Adhesive Bandage; Vicodin; penicillin; clindamycin Prescriptions Given: acetaminophen-oxycodone (Percocet 5/325 oral tablet) 1 tab(s) Oral every 6 hours as needed for pain. may take 1 or 2 tablets not to exceed 12 tablets/day. Refills: 0. albuterol (albuterol 90 mcg/inh inhalation aerosol) 2 puff(s) Inhalation 4 times a da (more content not included)... Note DATE OF ADMISSION: 9 DATE OF DISCHARGE: 11/17/2018 NARRATIVE SUMMARY: The patient is a 27-year-old single white female, G2,P1,203 who came in with a chief complaint of pelvic pain and dysfunctional vaginal bleeding. She came in for a total abdominal hysterectomy and bilateral salpingo-oophorectomy. We discussed thoroughly that at her age, a bilateral oophorectomy should not be taken lightly. After a long discussion, the patient decided to have both ovaries removed. The patient came in and had a total abdominal hysterectomy and bilateral salpingo-oophorectomy. She is postoperative day #2. She is ambulating and she is tolerating a diet. She is passing flatus. She is urinating well. She has no vaginal bleeding and she is ready to go home. FINAL DIAGNOSES: 1. PELVIC PAIN. 2. DYSFUNCTIONAL UTERINE BLEEDING. 3. PENDING PATHOLOGY. PROCEDURE: Total abdominal hysterectomy and bilateral salpingo-oophorectomy, extensive adhesiolysis. FINDINGS: See path report. LABORATORY STUDIES: See la (more content not included)... Note Patient: ELDA SAMPSON Age: 28 years Sex: FEMALE : 1990 Associated Diagnoses: None Author: Mateusz Stoner MD Postoperative Information Post Operative Note: Room 229. Anesthetic utilized: General. Health Status Allergies: Allergic Reactions (All) Severity Not Documented Clindamycin- Swelling. Penicillin- Swelling. Vicodin- Rash and itching. Nonallergic Reactions (All) Severity Not Documented Adhesive Bandage- Rash. Physical Examination VS/Measurements Vital Signs (last 24 hrs) Last Charted Temp Oral 36.6 DegC (NOV 15 12:11) Heart Rate Peripheral 68 bpm (NOV 15 12:11) Resp Rate 16 br/min (NOV 15 13:48) SBP 118 mmHg (NOV 15 12:11) DBP 76 mmHg (NOV 15 12:11) SpO2 97 % (NOV 15 13:48) Weight 63.600 kg (NOV 15:12) Height 157.48 cm (NOV 15:12) Review / Management Condition: Stable. Assessment Anesthetic outcome No anesthetic complications noted. Was asleep in bed although c/o significant pain when awakend.. No Complaint of naus (more content not included)... Procedure Findings Note Patient: ELDA SAMPSON Age: 28 years Sex: FEMALE : 1990 Associated Diagnoses: None Author: Mateusz Stoner MD Postoperative Information Post Operative Note: Room 229. Anesthetic utilized: General. Health Status Allergies: Allergic Reactions (All) Severity Not Documented Clindamycin- Swelling. Penicillin- Swelling. Vicodin- Rash and itching. Nonallergic Reactions (All) Severity Not Documented Adhesive Bandage- Rash. Physical Examination VS/Measurements Vital Signs (last 24 hrs) Last Charted Temp Oral 36.6 DegC (NOV 15 12:11) Heart Rate Peripheral 68 bpm (NOV 15 12:11) Resp Rate 16 br/min (NOV 15 13:48) SBP 118 mmHg (NOV 15 12:11) DBP 76 mmHg (NOV 15 12:11) SpO2 97 % (NOV 15 13:48) Weight 63.600 kg (NOV 15:12) Height 157.48 cm (NOV 15:12) Review / Management Condition: Stable. Assessment Anesthetic outcome No anesthetic complications noted. Was asleep in bed although c/o significant pain when awakend.. No Complaint of naus (more content not included)... Additional Source Comments INFORMATION SOURCE (unrecogn ized section and content) DATE CREATED AUTHOR 01/02/2019 [facility] DATE CREATED AUTHOR AUTHOR'S ORGANIZ ATION 11/06/2021 [employer] DATE CREATED AUTHOR AUTHOR'S ORGANIZ ATION 05/29/2022 [facility] DATE CREATED AUTHOR AUTHOR'S ORGANIZ ATION 04/10/2023 [facility] DATE CREATED AUTHOR AUTHOR'S ORGANIZ ATION 12/24/[address] [facility] EPIC Reason for Visit (unrecogniz ed section and content) Reason Comments Med Refill Care Teams (unrecognized sec tion and content) Economic Development Manager Relationship Specialty Start Date End Date Neil Rios MD PCP - General Family Medicine 10/21/22 FOR RECORDS PERTAINING TO PATIENTS WHO ARE OR HAVE BEEN ENROLLED IN A CHEMICAL DEPENDENCY/SUBSTANCEABUSE PROGRAM, SOME INFORMATION MAY BE OMITTED. This clinical summary was aggregated from multiple sources. Caution should be exercised in using it in the provision of clinical care. This summary normalizes information from multiple sources, and as a consequence, information in this document may materially change the coding, format and clinical context of patient data. In addition, data may be omitted in some cases. CLINICAL DECISIONS SHOULD BE BASED ON THE PRIMARY CLINICAL RECORDS. [facility]. provides no warranty or guarantee of the accuracy or completeness of information in this document.
--- NOTE | 2023-12-31 13:00 | RT_ITS ---
[facility] Test Date: 2023-12-31 Pat Name: ELDA SAMPSON Department: Room: - Gender: Female Ironer Sock: Sharon Cano RRT : 1990 Requested By: EFREN RIOS Order Number: [id number] Reading MD: Juan Ty Interpretive Statements Pulmonary function testing was completed according to ATS criteria. Findings were considered accurate and reproducible. No bronchodilator was administered due to normal spirometric values. Spirometry: -FEV1/FVC: Normal @ 87% -FEV1: Normal @ 105% -FVC: Normal @ 100% Lung volumes by plethysmography: -RV: Increased @ 135% -TLC: Normal @ 113% Diffusion capacity: -DLCO: Normal @ 94% when corrected for Hb 13.3g/dL Impressions: -Overall normal study. If asthma remains in the differential, may consider methacholine challenge testing. Clinical correlation required. Electronically Signed On 12-31-2023 14:12:34 EDT by Juan Ty
[2023-12-31 13:09] LABS: Basophils Percent Auto 0.6 % (0.2-2.0); Eosinophils Absolute Auto 0.4 10^3/uL (0.0-0.7); Eosinophils Percent Auto 6.2 % (0.9-7.0); Hemoglobin 13.3 g/dL (12.0-16.0); Immature Granulocytes Abs Auto 0.03 10^3/uL (0.00-0.03); Immature Granulocytes Pct Auto 0.4 % (0.0-0.5); Lymphocytes Absolute Auto 1.9 10^3/uL (1.2-3.8); Lymphocytes Percent Auto 26.9 % (20.5-60.0); Mean Corpuscular HGB Conc 34.1 g/dL (29.9-35.2); Mean Corpuscular Hemoglobin 31.9 pg (26.7-34.0); Mean Corpuscular Volume 93.5 fL (81.0-99.0); Mean Platelet Volume 8.2 fL (9.5-13.5); Monocytes Absolute Auto 0.5 10^3/uL (0.3-0.8); Monocytes Percent Auto 6.9 % (1.7-12.0); Neutrophils Absolute Auto 4.2 10^3/uL (1.4-6.5); Platelet Count 325 10^3/uL (150-450); Red Blood Count 4.17 10^6/uL (4.20-5.40); Red Cell Distribution Width 11.8 % (11.0-15.0); White Blood Count 7.1 10^3/uL (4.0-11.0)
[2023-12-31 13:12] LABS: Anion Gap 12.5; BUN Creatinine Ratio 12.1; Calcium 9.9 mg/dL (8.5-10.1); Carbon Dioxide 28.2 mmol/L (21.0-32.0); Chloride 98 mmol/L (98-107); Estimated GFR (African America >60 (>=60 mL/min/1.73m^2); Estimated GFR (Non-African Ame >60 (>=60 mL/min/1.73m^2); Glucose 96 mg/dL (74-106); Magnesium 1.9 mg/dL (1.8-2.4); Potassium 3.7 mmol/L (3.5-5.1); Sodium 135 mmol/L (136-145); TSH W/ REFLEX FT4 2.741 uIU/mL (0.358-3.740)
== END 2023-12-31 12:25 | disposition home or self-care (01) ==
LOC: CARD 12:24
PROVIDERS: PCP Family Medicine; Visit Provider Family Medicine
DX: J45.20 Mild intermittent asthma, uncomplicated (principal); R00.2 Palpitations
CPT/HCPCS: 36415; 80048; 83735; 84443; 85025; 94010; 94726; 94729